=== PATIENT | male | born 1950 | race Caucasian/White ===

== ENCOUNTER 2022-06-13 05:57 | Inpatient (IN) | payer MEDICARE, SELFPAY ==
[2022-06-13] VITALS (27 sets, daily range): BP systolic 119–208; BP diastolic 58–103; PULSE 55–102; RESP 12–26; TEMP 36.1–36.6; O2SAT 98–100; BMI 19.1
--- NOTE | ~2022-06-13 | CT_ITS ---
EXAMINATION: CT abdomen pelvis w con DATE: 06/13/2022 08:32 INDICATION: Left lower quadrant pain. Weight loss. TECHNIQUE: Computed tomography (CT) of the abdomen and pelvis was performed with 100 cc Omnipaque 350 intravenous contrast. The dose-length product was 249.06 mGy-cm. Automated exposure control and iter ative reconstruction technique were employed. COMPARISON: None. FINDINGS: Lung bases are unremarkable. Heart size normal. No significant pleural or pericardial effus ion. There is mild thickening of the gastric wall which may be due to underdistention although gastri tis should be considered in the appropriate clinical setting. There are small nonenlarged lymph nodes along the lesser curvature and paraesophageal locations as well as the portacaval region. Fatty infiltration of the liver. The spleen, pancreas, adrenal glands and kidneys are unremarkable. P ossible gallstones. There is atherosclerosis of the aorta without aneurysm. Moderate retained fecal m aterial in the colon and rectum. Moderate rectal distention. No free air or free fluid. Prostate glan d mildly prominent. No focal abnormality of the bladder wall. Normal appendix which lies just posteri or to the liver margin. Moderate lumbar spondylosis. There is atherosclerosis of the aorta. IMPRESSION: 1. Fecal impaction of the distal colon and rectum. 2: Mild gastric wall thickening which may be due to underdistention or gastritis in the appropriate c linical setting. Reviewed, dictated and finalized at location L. EDITATION SPECIALIST IMPRESSION: 1. Fecal impaction of the distal colon and rectum. 2: Mild gastric wall thickening which may be due to underdistention or gastriti s in the appropriate clinical setting.
--- NOTE | ~2022-06-13 | XR_ITS ---
EXAMINATION: XR chest 2V 06/13/2022 07:59 INDICATION: Weakness. Dyspnea. PROCEDURE: AP and lateral views of the chest COMPARISON: No prior studies for comparison. FINDINGS: The lungs are clear. The cardiomediastinal silhouette is within normal limits. There are no pleural effusions. There is no pneumothorax suspected. Prominent left nipple shadow. The lungs a re hyperinflated which is consistent with, but not diagnostic of chronic obstructive pulmonary diseas e. IMPRESSION: 1: NO ACUTE CARDIOPULMONARY DISEASE. Reviewed, dictated and finalized at location L. POULE EXAMINER
[2022-06-13] MEDS: MORPHINE SULFATE (*CRX) 4 MG/ML INJ IV PUSH (07:33)
[2022-06-13 07:50] LABS: Basophils Percent Auto 0.4 % (0.2-1.2); Eosinophils Percent Auto 0.4 % (0-4.4); Hematocrit 46.9 % (42.0-52.0); Hemoglobin 15.9 g/dL (14.0-18.0); Immature Granulocyte Absolute 0.04 K/mm3 (0.00-0.031); Immature Granulocyte Percent A 0.4 % (0-0.5); Lymphocytes Absolute Auto 2.78 K/mm3 (0.9-3.2); Lymphocytes Percent Auto 26.2 % (18.3-44.2); Mean Corpuscular HGB Conc 33.9 g/dl (32-36); Mean Corpuscular Hemoglobin 31.9 pg (26-34); Mean Platelet Volume 10.8 fl (7.4-10.4); Monocytes Absolute Auto 0.6 K/mm3 (0.1-0.6); Neutrophils Absolute Auto 7.1 K/mm3 (1.3-6.7); Neutrophils Percent Auto 66.6 % (45.5-73.1); Platelet Count Result 231 k/mm3 (150-375); Red Blood Count 4.99 M/mm3 (4.6-6.20); White Blood Count 10.6 K/mm3 (4.5-10.0)
--- NOTE | 2022-06-13 07:58 | ED.ABDPAIN ---
HPI - Abdominal Pain General Chief Complaint: Abdominal Pain Stated Complaint: constipation Time Seen by Provider: 06/13/22 07:00 History of Present Illness HPI narrative: Patient is a 72-year-old male who presents ER with lower abdominal pain. Ongoing over the last month. Left lower quadrant. Associated with constipation and straining go to the bathroom. No abdominal bloating or belching. He reports 70 pound weight loss over the last 4 months that was unintentional. He has not had a colonoscopy before. He is a lifetime smoker. No fevers or chills or sweats. No chest pain or chest pressure. No alleviating factors of his abdominal discomfort. Related Data Home Medications Medication Instructions Recorded Confirmed No Home Medications 06/13/22 06/13/22 Allergies Allergy/AdvReac Type Severity Reaction Status Date / Time No Known Allergies Allergy Verified 06/13/22 12:33 Review of Systems Review of Systems: All systems reviewed & are unremarkable except as noted in HPI and below Constitutional: Constitutional: Denies chills, Denies fatigue and Denies fever(s) ENT: Denies nasal congestion and Denies sore throat Cardiovascular: Cardiovascular: Denies chest pain, Denies rapid heart rate and Denies radiating jaw, neck or arm pain Respiratory: Respiratory: Denies cough and Denies dyspnea Gastrointestinal: Gastrointestinal: Reports abdominal pain, Reports constipation, Denies nausea and Denies vomiting PMF Past Medical History Medical History (Updated 06/13/22 @ 19:02 by Anson Lewis MD) Tobacco dependence Surgical History Surgical History (Updated 06/13/22 @ 18:24 by Shakila Cam PA-C) History of open reduction and internal fixation (ORIF) procedure Repair of compound like fracture. Family History Family History Father Acute myocardial infarction Hypertension Mother Diabetes mellitus Acute myocardial infarction Congestive heart failure Hypertension Daughter Cerebrovascular accident Pseudocholinesterase deficiency Grandparent Diabetes mellitus Congestive heart failure Hypertension Cerebrovascular accident Social History Social History (Updated 06/13/22 @ 13:15 by Shakila Cam PA-C) Social History: Surrogate medical decision maker: Debbie Lund, daughter. Code status: Full code. Smoking packs per day: 1.5 Smoking cigarettes per day: 30.0 Years smoked: 60 Smoking pack-years: 90.00 Smoking status: Current every day smoker Alcohol intake: former Substance use: current Substance use type: marijuana Lack of Transportation: No Lack of Food: Never True Current Housing: I Have Housing Concerned About Future Housing: No Difficulty Paying Gas/Electric Bills: No Difficulty Paying for Meds: No Currently Unemployed: No Education: High School Diploma/GED Difficulty w/ Childcare or Family Care: No Spiritual care concerns: No Exam Narrative: GENERAL: Well-appearing, thin, and in no acute distress. HEAD: Normocephalic, atraumatic. EYES: PERRL and EOMI. ENT: Mucous membranes moist. CHEST: Clear to auscultation. No respiratory distress. HEART: Regular rate and rhythm. Normal peripheral pulses. ABDOMEN: Soft, tender to palpation left lower quadrant with mild guarding, no palpable mass, nondistended. EXTREMITIES: Normal range of motion. No edema. SKIN: Warm, dry, no rash. NEURO: Alert and oriented x3. PSYCH: Normal mood and affect. Course Course Emergency Course: Patient will receive a enema for fecal impaction. He has declined manual extraction. I have also discussed the case with GI patient will be admitted so he can have an endoscopy and colonoscopy. Patient will receive a bowel prep and be put on clear liquids. Excepted by hospitalist service. Vital Signs Vital signs: Vital Signs Pulse Rate 95 06/13/22 06:02 Respiratory Rate 19 06/13/22 06:02
[2022-06-13 08:02] LABS: Alanine Aminotransferase 17 U/L (6-50); Albumin Level 4.1 g/dL (3.5-5.1); Alkaline Phosphatase 55 U/L (38-126); Anion Gap 7 mmol/L (8-16); Aspartate Amino Transferase 20 U/L (17-59); Bilirubin,Total 0.5 mg/dL (0.2-1.3); Blood Urea Nitrogen 12 mg/dL (9-20); Calcium 8.9 mg/dL (8.4-10.2); Carbon Dioxide 23 mmol/L (22-30); Chloride 108 mmol/L (98-107); Estimated CRCL calculation 89 ml/min; Estimated Glomerular Filt Rate > 60; Glucose 96 mg/dL (65-110); Lipase 148 U/L (23-300); Potassium 3.7 mmol/L (3.4-5.0); Sodium 138 mmol/L (137-145)
[2022-06-13 08:23] LABS: Appearance Urine Clear (Clear); Bilirubin Urine 1+ (Negative); Blood Urine Negative (Negative); Color Urine Yellow (Yellow); Glucose Urine UA Negative (Negative); Ketones Urine Trace mg/dL (Negative); Leukocyte Esterase Ur Negative LEU/UL (Negative); Nitrate Urine Negative (Negative); Protein Urine Negative (Negative); Urobilinogen Urine 0.2 mg/dL (<2.0)
[2022-06-13 08:25] LABS: Mucus Urine Rare /lpf; RBC Urine 0-2 /hpf (0-2); Squamous Epithelial Cell Urine Rare /hpf (Few); WBC Urine 0-3 /hpf
[2022-06-13 08:26] LABS: Add Urine Microscopic? YES
[2022-06-13] MEDS: BISACODYL 5 MG TABLET EC 20 MG PO (10:02)
[2022-06-13] MEDS: PANTOPRAZOLE SODIUM IV 40 MG VIAL IV PUSH (10:39)
--- NOTE | 2022-06-13 10:46 | PC.NURSE ---
Up to commode. Passing liquid but states he feels like stool is stuck and not coming out. Pt refuses digital disimpaction by the erp.
[2022-06-13 10:59] LABS: Influenza A QL RT-PCR Negative (Negative); Influenza B QL RT-PCR Negative (Negative); SARS-CoV-2 RNA PCR Negative
[2022-06-13] MEDS: SODIUM CHLORIDE 0.9% IV 1,000 ML 125 ML IV CONT ×2 (12:11→19:53)
--- NOTE | 2022-06-13 12:32 | ADMGEN ---
This patient, Johnny Lund, was admitted to [facility] Surg Room 330-02. Report received from JENNIFER Molina. Patient/family oriented to hospital policies and general routines including ID bracelet, bed and alarms, visiting hours, pain management, procedures, bathroom and other care routines, personal items, smoking policy, room service/diet, and visiting hours. Information on how to activate the Rapid Response Team has been discussed. Patient/Family are encouraged to report perceived risks to care and to ask questions if they do not understand what they are told or what they should do.
[2022-06-13] MEDS: polyethylene glycoL 3350 238 GM BOTTLE PO (13:06)
--- NOTE | 2022-06-13 13:44 | WPDGICN ---
Assessment and Plan Assessment and plan (1) Unintentional weight loss: Code(s): R63.4 - Abnormal weight loss Status: Acute Assessment and Plan: will assess with egd and colonoscopy (had abnormal gastric thickening by CT scan), need to assess for malignancy (2) Fecal impaction: Code(s): K56.41 - Fecal impaction Status: Acute Assessment and Plan: s/p enema colonoscopy tomorrow (3) Abnormal CT of the abdomen: Code(s): R93.5 - Abnormal findings on diagnostic imaging of other abdominal regions, including retroperitoneum Status: Acute Assessment and Plan: reviewed, will proceed with scopes (4) Bowel habit changes: Code(s): R19.4 - Change in bowel habit Status: Acute Assessment and Plan: needs to get colonoscopy, he is agreeable (5) Tobacco dependence: Code(s): F17.200 - Nicotine dependence, unspecified, uncomplicated Status: Acute GI Consult Note Consult date/time: 06/13/22 13:44 Reason for consult: weight loss, fecal impaction, abnormal CT scan GI tract HPI: Johnny Lund is a 72 year old male here with progressive weight loss ~ 70 lb last few months, also rectal discomfort with change in bowel habits, he has not had a good BM for several days now. He has not seen a doctor most of his adult life and he is not taking any medication or ever had scopes I am healthy . CT scan reviewed, showed fecal impaction of the distal colon and rectum, Mild gastric wall thickening which may be due to underdistention or gastritis in the appropriate clinical setting. h/h and liver enzymes normal Review of Systems Constitutional: Constitutional: Denies headache(s) and Reports weight loss Eyes: Eyes: Denies blurry vision ENT: Reports Normal hearing present, Denies headache(s) and Denies neck pain Cardiovascular: Cardiovascular: Denies chest pain and Denies dyspnea Respiratory: Respiratory: Denies dyspnea Gastrointestinal: Gastrointestinal: Reports no additional gastrointestinal complaints Genitourinary: Genitourinary: Denies dysuria Musculoskeletal: Musculoskeletal: Denies neck pain Integumentary/Breasts: Skin/Breast: Denies dry skin Neurologic: Reports Normal hearing present, Denies headache(s) and Denies weakness Psychiatric: Psychiatric: Denies anxiety Endocrine: Endocrine: Denies change in body appearance Hematologic/Lymphatic: Hematologic/Lymphatic: Denies easy bleeding Allergic/Immunologic: Allergic/Immunologic: Denies urticaria PMFSH Past Medical History Medical History (Updated 06/13/22 @ 13:47 by Ananth Nguyen MD) Abnormal CT of the abdomen Bowel habit changes Tobacco dependence Surgical History Surgical History No history of previous surgery Family History Family History Father Acute myocardial infarction Hypertension Mother Acute myocardial infarction Congestive heart failure Diabetes mellitus Hypertension Daughter Cerebrovascular accident Grandparent Cerebrovascular accident Congestive heart failure Diabetes mellitus Hypertension Social History Social History (Updated 06/13/22 @ 13:15 by Shakila Cam PA-C) Social History: Surrogate medical decision maker: Debbie Lund, daughter. Code status: Full code. Smoking packs per day: 1.5 Smoking cigarettes per day: 30.0 Years smoked: 60 Smoking pack-years: 90.00 Smoking status: Current every day smoker Alcohol intake: former Substance use: current Substance use type: marijuana Lack of Transportation: No Lack of Food: Never True Current Housing: I Have Housing Concerned About Future Housing: No Difficulty Paying Gas/Electric Bills: No Difficulty Paying for Meds: No Currently Unemployed: No Education: High School Diploma/GED Difficulty w/ Childcare or Family Care: No
--- NOTE | 2022-06-13 14:00 | PM.IMHP ---
H&P: HPI History of Present Illness Date/Time: 06/13/22 14:00 Chief Complaint: Constipation and abdominal discomfort. Narrative: This is a very pleasant 72-year-old male smoker without significant medical history (he does not think he has seen a doctor since the age of 19) who presented to the emergency department via EMS from home for evaluation of constipation and abdominal discomfort. Patient provides the following history. Up until 4 months ago he had good bowel movements 2 times a day. He is now having issues going to the bathroom and he strains to have bowel movements. Occasionally he has to disimpact himself. When he does have a bowel movement the stools are small and hard. He has been taking will softeners, mineral oil, and MiraLax but they have not really helped. Additionally he has had generalized abdominal discomfort in the lower abdomen, a bit more so on the right side. Today he just could not take it anymore and decided to come in for evaluation. He has not noticed any blood in the stool but he thinks he may have hemorrhoids. He has lost 70 lb unintentionally in the last several months. He has gotten a bit weak in the same time frame and has been ambulating with a cane. He has never had a colonoscopy. No significant abdominal bloating or belching. He has not noticed any palpable masses. No personal or family history of colon cancer. CT of the abdomen and pelvis shows fecal impaction of the distal colon and rectum and mild gastric wall thickening. He is being admitted in this setting for further treatment, evaluation, and GI consultation. Review of Systems Review of Systems: Twelve systems were reviewed. Denies dysphagia. no fever, chills, or sweats. No recent cold or flu symptoms. No chest pain or shortness of breath. No lower extremity edema. No calf pain. He is not on opioid therapy. No history of thyroid disease. Except as documented, all other systems were reviewed and are negative. [facility] Past Medical History Medical History Tobacco dependence Surgical History Surgical History History of open reduction and internal fixation (ORIF) procedure Repair of compound like fracture. Family History Family History Father Acute myocardial infarction Hypertension Mother Diabetes mellitus Acute myocardial infarction Congestive heart failure Hypertension Daughter Cerebrovascular accident Pseudocholinesterase deficiency Grandparent Diabetes mellitus Congestive heart failure Hypertension Cerebrovascular accident Social History Social History Social History: Surrogate medical decision maker: Debbie Lund, daughter. Code status: Full code. Smoking packs per day: 1.5 Smoking cigarettes per day: 30.0 Years smoked: 60 Smoking pack-years: 90.00 Smoking status: Current every day smoker Alcohol intake: former Substance use: current Substance use type: marijuana Lack of Transportation: No Lack of Food: Never True Current Housing: I Have Housing Concerned About Future Housing: No Difficulty Paying Gas/Electric Bills: No Difficulty Paying for Meds: No Currently Unemployed: No Education: High School Diploma/GED Difficulty w/ Childcare or Family Care: No Spiritual care concerns: No Meds Home Medications and Allergies Home Medications Medication Instructions Recorded Confirmed Type No Home Medications 06/13/22 06/13/22 History Allergies Allergy/AdvReac Type Severity Reaction Status Date / Time No Known Allergies Allergy Verified 06/13/22 12:33 Vital Signs Vital Signs - 24 hr 06/13/22 06:02 06/13/22 06:03 06/13/22 06:05 Temperature Pulse Rate 95 94 96 Respiratory Rate 19 24 H 22 H Blood Pressure 126/103 H 126/103
[2022-06-13] MEDS: NICOTINE (*PBKC) 21 MG PATCH 1 PATCH TRANSDERM (19:46)
[2022-06-13] MEDS: ACETAMINOPHEN 325 MG TABLET 650 MG PO (19:54)
[2022-06-14] VITALS (9 sets, daily range): BP systolic 96–175; BP diastolic 41–83; PULSE 50–61; RESP 16–18; TEMP 35.9–36.4; O2SAT 98–100
[2022-06-14] MEDS: ACETAMINOPHEN 325 MG TABLET 650 MG PO ×2 (06:28→18:28)
[2022-06-14] MEDS: SODIUM CHLORIDE 0.9% IV 1,000 ML 125 ML IV CONT (06:28)
[2022-06-14 07:01] LABS: Hematocrit 41.9 % (42.0-52.0); Hemoglobin 13.9 g/dL (14.0-18.0); Mean Corpuscular HGB Conc 33.2 g/dl (32-36); Mean Corpuscular Hemoglobin 31.7 pg (26-34); Mean Corpuscular Volume 95.4 fl (80-100); Mean Platelet Volume 11.5 fl (7.4-10.4); Platelet Count Result 202 k/mm3 (150-375); Red Blood Count 4.39 M/mm3 (4.6-6.20); White Blood Count 8.8 K/mm3 (4.5-10.0)
[2022-06-14 07:15] LABS: Anion Gap 4 mmol/L (8-16); Blood Urea Nitrogen 7 mg/dL (9-20); Calcium 8.2 mg/dL (8.4-10.2); Carbon Dioxide 23 mmol/L (22-30); Chloride 112 mmol/L (98-107); Estimated CRCL calculation 89 ml/min; Estimated Glomerular Filt Rate > 60; Glucose 86 mg/dL (65-110); Magnesium 2.1 mg/dL (1.6-2.3); Potassium 3.7 mmol/L (3.4-5.0); Sodium 139 mmol/L (137-145)
[2022-06-14] MEDS: NICOTINE (*PBKC) 21 MG PATCH 1 PATCH TRANSDERM (08:21)
[2022-06-14] MEDS: PANTOPRAZOLE SODIUM IV 40 MG VIAL IV PUSH ×2 (08:21→20:47)
[2022-06-14] MEDS: LACTATED RINGERS 1,000 ML 150 ML IV CONT ×2 (13:37→15:30)
--- NOTE | 2022-06-14 13:58 | WPDANESEPPF ---
Anes - Initial Pre Proc Eval Procedure: Operation Date: 06/14/22 16:45 Proposed Procedures p Esophagogastroduodenoscopy & Colonoscopy - Ananth Nguyen MD Date/Time: 06/14/22 13:58 Surgeon: Iani Nelson MD Pre Op Diagnosis: Fecal Impaction/Unexplained Weight Loss/Gastric Wa Patient Data Age: 72 Gender: M Height: 1.87 m Weight: 66.6 kg Last Vital Signs Temp 96.9 F L 06/14/22 13:20 Pulse 56 L 06/14/22 13:20 Resp 16 06/14/22 13:20 BP 175/69 H 06/14/22 13:20 Pulse Ox 99 06/14/22 13:20 O2 Del Method Room Air 06/14/22 13:20 Allergies Allergy/AdvReac Type Severity Reaction Status Date / Time No Known Allergies Allergy Verified 06/14/22 13:31 Home Medications Medication Instructions Recorded Confirmed Type No Home Medications 06/13/22 06/13/22 History Laboratory Tests 06/14/22 06/14/22 06/14/22 06:11 06:11 06:11 WBC 8.8 K/mm3 K/mm3 (4.5-10.0) RBC 4.39 M/mm3 L M/mm3 (4.6-6.20) Hgb 13.9 g/dL L g/dL (14.0-18.0) Hct 41.9 % L % (42.0-52.0) MCV 95.4 fl fl (80-100) MCH 31.7 pg pg (26-34) MCHC 33.2 g/dl g/dl (32-36) RDW 14.0 % % (11.5-14.5) Plt Count 202 k/mm3 k/mm3 (150-375) MPV 11.5 fl H fl (7.4-10.4) Sodium 139 mmol/L mmol/L (137-145) Potassium 3.7 mmol/L mmol/L (3.4-5.0) Chloride 112 mmol/L H mmol/L (98-107) Carbon Dioxide 23 mmol/L mmol/L (22-30) Anion Gap 4 mmol/L L mmol/L (8-16) BUN 7 mg/dL L D mg/dL (9-20) Creatinine 0.60 mg/dL L mg/dL (0.7-1.3) Estim Creat Clear Calc 89 ml/min ml/min Estimated GFR > 60 (59 - ) Glucose 86 mg/dL mg/dL (65-110) Calcium 8.2 mg/dL L mg/dL (8.4-10.2) Magnesium 2.1 mg/dL mg/dL (1.6-2.3) TSH (Reflex) 1.010 uIU/mL uIU/mL (0.465-4.68) Patient hx anesthesia problems: none Family hx anesthesia problems: none Results Review: All pre-operative results and documents have been reviewed as part of the pre-operative evaluation. [facility] Past Medical History Medical History Tobacco dependence Surgical History Surgical History History of open reduction and internal fixation (ORIF) procedure Repair of compound like fracture. Family History Family History Father Acute myocardial infarction Hypertension Mother Diabetes mellitus Acute myocardial infarction Congestive heart failure Hypertension Daughter Cerebrovascular accident Pseudocholinesterase deficiency Grandparent Diabetes mellitus Congestive heart failure Hypertension Cerebrovascular accident Social History Social History Social History: Surrogate medical decision maker: Debbie Lund, daughter. Code status: Full code. Smoking packs per day: 1.5 Smoking cigarettes per day: 30.0 Years smoked: 60 Smoking pack-years: 90.00 Smoking status: Current every day smoker Alcohol intake: former Substance use: current Substance use type: marijuana Lack of Transportation: No Lack of Food: Never True Current Housing: I Have Housing Concerned About Future Housing: No Difficulty Paying Gas/Electric Bills: No Difficulty Paying for Meds: No Currently Unemployed: No Education: High School Diploma/GED Difficulty w/ Childcare or Family Care: No Spiritual care concerns: No Anes - Eval Final PreProcedure Day of Procedure 06/14/22 13:58 Patient weight: normal Heart: regular rate and rhythm Lungs: clear to auscultation Airway: Mallampati scale class II Neurological: alert and oriented Last oral intake: >/= 8 hours ASA classi
--- NOTE | 2022-06-14 14:52 | SUR.OPER ---
EGD: [id number] Colonoscopy began at 1450
--- NOTE | 2022-06-14 16:08 | PM.IMPN ---
Progress Note: A&P Assessment and Plan (1) Fecal impaction: Code(s): K56.41 - Fecal impaction Status: Acute Assessment and Plan: Patient reports ongoing issues with constipation x4 months. MiraLax, mineral oil, stool softeners have not helped. CT of the abdomen pelvis shows evidence of fecal impaction await colonscopy report (2) Unintentional weight loss: Code(s): R63.4 - Abnormal weight loss Status: Acute Assessment and Plan: Concerning given the above GI symptoms. CT of the abdomen and pelvis also showed abnormal gastric thickening. Pt scheduled for upper and lower endoscopy (3) Elevated blood pressure reading: Code(s): R03.0 - Elevated blood-pressure reading, without diagnosis of hypertension Status: Acute Assessment and Plan: Continue antihypertensives if indicated. (4) Tobacco dependence: Code(s): F17.200 - Nicotine dependence, unspecified, uncomplicated Status: Acute Assessment and Plan: Smoking cessation is encouraged. Nicotine patch ordered per patient request. Subjective Date/time seen: 06/14/22 16:08 72-year-old male smoker without significant medical history (he does not think he has seen a doctor since the age of 19) who presented to the emergency department via EMS from home for evaluation of constipation and abdominal discomfort. Patient provides the following history. Pt receiving bowel prep, for colonoscopy today. pt has complains of RLS CT showed - showed?fecal impaction of the distal colon and rectum,? Mild gastric wall thickening Await colonscopy report Review of Systems Review of Systems: Restless leg syndrome weight loss Exam Narrative: General: Thin appearing chronically ill appearing Respiratory: Respirations are nonlabored and he is speaking in full sentences. Lung sounds diminished throughout with faint expiratory wheezing. Otherwise lungs are clear to auscultation bilaterally. Cardiovascular: Regular rate and rhythm with S1-S2. Gastrointestinal: Abdomen is soft, scaphoid, nontender, and nondistended with positive bowel sounds. Skin: Warm and dry. No rash or lesions on limited exam. Extremities: No cyanosis, clubbing, or edema. Radial and pedal pulses intact. Neurological: Alert. Cranial nerves 2-12 are grossly intact. Speech is clear. No facial asymmetry. No gross focal deficits to casual conversation. Psychiatric: Pleasant and cooperative with normal mood and affect. Judgment and insight intact. Objective Data Vital Signs Vital Signs: Vital Signs - 24 hr 06/13/22 20:00 06/14/22 00:00 06/14/22 04:00 Temperature 36.2 C L 36.3 C L 36.3 C L Pulse Rate 55 L 51 L 56 L Respiratory Rate 16 18 18 Blood Pressure 119/58 L 96/41 L 130/83 Pulse Oximetry 98 98 99 Oxygen Delivery 06/14/22 09:00 06/14/22 13:20 06/14/22 15:35 Temperature 36.4 C L 36.1 C L Pulse Rate 52 L 56 L 53 L Respiratory Rate 18 16 17 Blood Pressure 129/81 175/69 H 139/59 L Pulse Oximetry 98 99 99 Oxygen Delivery Room Air Room Air 06/14/22 15:45 Temperature Pulse Rate 54 L Respiratory Rate 17 Blood Pressure 146/71 H Pulse Oximetry 100 Oxygen Delivery Room Air Intake/Output Intake/Output: Intake & Output 06/11/22 06/12/22 06/13/22 06/14/22 23:59 23:59 23:59 23:59 Intake Total 2680 2125 Output Total 600 1100 Balance 2080 1025 Meds/Results Medications: Active Medications Generic Name Dose Route Start Last Admin Trade Name Freq PRN Reason Stop Dose Admin Acetaminophen 650 mg 06/13/22 13:19 06/14/22 06:28 Acetaminophen 325 Mg Tablet PO 650 mg Q6H PRN Administration Mild Pain (1-3) or Fever Sodium Chloride 1,000 mls @ 125 mls/hr 06/13/22 10:20 06/14/22 06:28 Normal Saline Iv IV CONT 125 mls/hr .Q8H ADITI Administration Nicotine 1 patch 06/13/22 18:25 06/14/22 08:21 Nicotine (*Pbkc) 21 Mg Patch TRANSDERM 1 patch QAM ADITI Administration
[2022-06-15] VITALS: BP 135/81; PULSE 57; RESP 14; TEMP 36.2; O2SAT 97
[2022-06-15] MEDS: ACETAMINOPHEN 325 MG TABLET 650 MG PO (01:16)
[2022-06-15 04:00] VITALS: BP 138/74; PULSE 53; RESP 18; TEMP 36.3; O2SAT 100
[2022-06-15] MEDS: NICOTINE (*PBKC) 21 MG PATCH 1 PATCH TRANSDERM (09:16)
[2022-06-15 10:00] VITALS: BP 132/79; PULSE 62; RESP 18; TEMP 36.4; O2SAT 97
--- NOTE | 2022-06-15 10:18 | WPDANESPN ---
Anes - Prog Note Post-Op Date/Time: 06/15/22 10:18 Cardiovascular status: normal Respiratory status: normal Airway patency: baseline Mental status: baseline Post-Op hydration status: normal Vital Signs: Last Vital Signs Temp 36.4 C L 06/15/22 10:00 Pulse 62 06/15/22 10:00 Resp 18 06/15/22 10:00 BP 132/79 06/15/22 10:00 Pulse Ox 97 06/15/22 10:00 O2 Del Method Room Air 06/14/22 15:45 Pain Score (VAS): 0 I/O: Intake & Output 06/14/22 06/15/22 06/15/22 23:59 07:59 15:59 Intake Total 120 250 240 Output Total 900 125 Balance -780 125 240 Laboratory Tests 06/14/22 06:11 06/14/22 06:11 Post-procedural complaints: none Patient Feedback: Patient satisfied with anesthetic care.
--- NOTE | 2022-06-15 12:32 | PM.IMPN ---
Progress Note: A&P Assessment and Plan (1) Fecal impaction: Code(s): K56.41 - Fecal impaction Status: Acute Assessment and Plan: Patient reports ongoing issues with constipation x4 months. MiraLax, mineral oil, stool softeners have not helped. CT of the abdomen pelvis shows evidence of fecal impaction. Sp bowel prep and colonoscopy Colonoscopy report shows - colonic polyp and diverticulosis Advance diet dc tomorrow (2) Unintentional weight loss: Code(s): R63.4 - Abnormal weight loss Status: Acute Assessment and Plan: Concerning given the above GI symptoms. CT of the abdomen and pelvis also showed abnormal gastric thickening. Sp colonoscopy (3) Elevated blood pressure reading: Code(s): R03.0 - Elevated blood-pressure reading, without diagnosis of hypertension Status: Acute Assessment and Plan: Continue antihypertensives if indicated. (4) Tobacco dependence: Code(s): F17.200 - Nicotine dependence, unspecified, uncomplicated Status: Acute Assessment and Plan: Smoking cessation is encouraged. Nicotine patch ordered per patient request. Plan RLS Start gabapentin for leg cramps Subjective Date/time seen: 06/15/22 12:32 72-year-old male smoker without significant medical history (he does not think he has seen a doctor since the age of 19) who presented to the emergency department via EMS from home for evaluation of constipation and abdominal discomfort. Patient provides the following history. Up until 4 months ago he had good bowel movements 2 times a day. He is now having issues going to the bathroom and he strains to have bowel movements.? Occasionally he has to disimpact himself. When he does have a bowel movement the stools are small and hard. He has been taking will softeners, mineral oil, and MiraLax but they have not really helped. Additionally he has had generalized abdominal discomfort in the lower abdomen, a bit more so on the right side. Pt had ?colonoscopy yesterday. pt has complains of RLS. pt still having some loose stool. CT showed - showed?fecal impaction of the distal colon and rectum,? Mild gastric wall thickening Colonoscopy report shows colonic polyp and diverticulosis Pt to advance diet and DC tomorrow with GI follow up Review of Systems Review of Systems: loose stools +painful legs Exam Narrative: General: Thin appearing chronically ill appearing Respiratory: Respirations are nonlabored and he is speaking in full sentences. Lung sounds diminished throughout with faint expiratory wheezing. Otherwise lungs are clear to auscultation bilaterally. Cardiovascular: Regular rate and rhythm with S1-S2. Gastrointestinal: Abdomen is soft, scaphoid, nontender, and nondistended with positive bowel sounds. Skin: Warm and dry. No rash or lesions on limited exam. Extremities: No cyanosis, clubbing, or edema. Radial and pedal pulses intact. Neurological: Alert. Cranial nerves 2-12 are grossly intact. Speech is clear. No facial asymmetry. No gross focal deficits to casual conversation. Psychiatric: Pleasant and cooperative with normal mood and affect. Judgment and insight intact. Objective Data Vital Signs Vital Signs: Vital Signs - 24 hr 06/14/22 13:20 06/14/22 15:35 06/14/22 15:45 Temperature 36.1 C L Pulse Rate 56 L 53 L 54 L Respiratory Rate 16 17 17 Blood Pressure 175/69 H 139/59 L 146/71 H Pulse Oximetry 99 99 100 Oxygen Delivery Room Air Room Air Room Air 06/14/22 16:00 06/14/22 18:00 06/14/22 20:00 Temperature 35.9 C L 36.2 C L 36.1 C L Pulse Rate 50 L 61 52 L Respiratory Rate 16 18 18 Blood Pressure 149/70 H 134/63 137/64 Pulse Oximetry 100 100 98 Oxygen Delivery 06/15/22 00:00 06/15/22 04:00 06/15/22 10:00 Temperature 36.2 C L 36.3 C L 36.4 C L Pulse Rate 57 L 53 L 62 Respiratory Rate 14 18 18 Blood Pressure 135/81 138/74 132/79 Pulse Oximetry 97 100 97 Oxygen Delivery
[2022-06-15 14:00] VITALS: BP 151/69; PULSE 68; RESP 18; TEMP 36.4; O2SAT 97
[2022-06-15] MEDS: PANTOPRAZOLE 40 MG TABLET PO ×2 (14:04→20:08)
[2022-06-15] MEDS: GABAPENTIN 100 MG CAPSULE PO ×2 (14:04→17:21)
--- NOTE | 2022-06-15 15:26 | WPDGIPROGNO ---
Progress Note: A&P Assessment and Plan (1) Gastric ulcer: Code(s): K25.9 - Gastric ulcer, unspecified as acute or chronic, without hemorrhage or perforation Status: Acute Assessment and Plan: I am concerned that he could have gastric malignancy (awaiting on bx)- if positive then will need to see oncology and surgery evaluation continue with protonix twice daily (2) Unintentional weight loss: Code(s): R63.4 - Abnormal weight loss Status: Acute Assessment and Plan: probably from egd finding (3) Bowel habit changes: Code(s): R19.4 - Change in bowel habit Status: Acute (4) Fecal impaction: Code(s): K56.41 - Fecal impaction Status: Acute Assessment and Plan: resolved (5) Abnormal CT of the abdomen: Code(s): R93.5 - Abnormal findings on diagnostic imaging of other abdominal regions, including retroperitoneum Status: Acute (6) Adenomatous colon polyp: Code(s): D12.6 - Benign neoplasm of colon, unspecified Status: Acute Assessment and Plan: several colon polyps removed yesterday, pending bx Subjective Date/time seen: 06/15/22 15:26 Interval history: egd yesterday with large gastric ulcer concerning for malignancy, had several colon polyps that I removed no signs of bleeding Review of Systems Review of Systems: All systems reviewed & are unremarkable except as noted in HPI and below Exam Const: General: comfortable and no acute distress HENMT: Face/Nose/Sinus: Normal nares present Eyes: General: appearance normal, both eyes and all related structures Neck: Neck: no JVD Resp: Auscultation: clear to auscultation bilaterally Cardio: Rate: regular rate Rhythm: regular rhythm GI: Inspection: non-distended GI Palp: Yes Soft to palpation, No Tenderness to palpation present (GI) and No Guarding due to palpation present (GI) Skin: General skin exam: normal color Neuro: General: gait normal Speech: normal speech Extrem: General: normal to inspection Psych: Mental Status: mental status grossly normal Objective Data Vital Signs Vital Signs: Vital Signs - 24 hr 06/14/22 15:35 06/14/22 15:45 06/14/22 16:00 Temperature 96.7 F L Pulse Rate 53 L 54 L 50 L Respiratory Rate 17 17 16 Blood Pressure 139/59 L 146/71 H 149/70 H Pulse Oximetry 99 100 100 Oxygen Delivery Room Air Room Air 06/14/22 18:00 06/14/22 20:00 06/15/22 00:00 Temperature 97.2 F L 97 F L 97.2 F L Pulse Rate 61 52 L 57 L Respiratory Rate 18 18 14 Blood Pressure 134/63 137/64 135/81 Pulse Oximetry 100 98 97 Oxygen Delivery 06/15/22 04:00 06/15/22 10:00 06/15/22 14:00 Temperature 97.3 F L 97.5 F L 97.5 F L Pulse Rate 53 L 62 68 Respiratory Rate 18 18 18 Blood Pressure 138/74 132/79 151/69 H Pulse Oximetry 100 97 97 Oxygen Delivery Intake/Output Intake/Output: Intake & Output 06/12/22 06/13/22 06/14/22 06/15/22 23:59 23:59 23:59 23:59 Intake Total 2680 2245 490 Output Total 600 2000 125 Balance 2080 245 365 Meds/Results Medications: Active Medications Generic Name Dose Route Start Last Admin Trade Name Freq PRN Reason Stop Dose Admin Acetaminophen 650 mg 06/13/22 13:19 06/15/22 01:16 Acetaminophen 325 Mg Tablet PO 650 mg Q6H PRN Administration Mild Pain (1-3) or Fever Gabapentin 100 mg 06/15/22 13:00 06/15/22 14:04 Gabapentin 100 Mg Capsule PO 100 mg TID ADITI Administration Nicotine 1 patch 06/13/22 18:25 06/15/22 09:16 Nicotine (*Pbkc) 21 Mg Patch TRANSDERM 1 patch QAM ADITI Administration Ondansetron HCl 4 mg 06/13/22 10:19 Ondansetron Inj 4 Mg/2 Ml Vial IV PUSH Q4H PRN Nausea Pantoprazole Sodium 40 mg 06/15/22 10:50 06/15/22 14:04 Pantoprazole 40 Mg Tablet PO 40 mg Q12HR ADITI Administration Radiology Results: ITS Impressions Chest X-Ray 06/13/22 08:08 IMPRESSION: 1: NO ACUTE CARDIOPULMONARY DISEASE.
[2022-06-15 17:00] VITALS: BP 154/78; PULSE 66; RESP 16; TEMP 36.4; O2SAT 98
[2022-06-15 20:00] VITALS: BP 148/71; PULSE 61; RESP 16; TEMP 36; O2SAT 99
[2022-06-16] VITALS: BP 141/61; PULSE 52; RESP 18; TEMP 35.8; O2SAT 100
[2022-06-16 04:00] VITALS: BP 144/68; PULSE 54; RESP 20; TEMP 36; O2SAT 99
[2022-06-16 06:28] LABS: Anion Gap 5 mmol/L (8-16); Blood Urea Nitrogen 8 mg/dL (9-20); Calcium 8.5 mg/dL (8.4-10.2); Carbon Dioxide 23 mmol/L (22-30); Chloride 107 mmol/L (98-107); Estimated CRCL calculation 86 ml/min; Estimated Glomerular Filt Rate > 60; Glucose 85 mg/dL (65-110); Potassium 3.6 mmol/L (3.4-5.0); Sodium 135 mmol/L (137-145)
[2022-06-16] MEDS: ACETAMINOPHEN 325 MG TABLET 650 MG PO ×2 (09:45→20:58)
[2022-06-16] MEDS: PANTOPRAZOLE 40 MG TABLET PO ×2 (09:45→20:57)
[2022-06-16] MEDS: NICOTINE (*PBKC) 21 MG PATCH 1 PATCH TRANSDERM (09:48)
[2022-06-16] MEDS: GABAPENTIN 100 MG CAPSULE PO ×2 (10:01→16:39)
--- NOTE | 2022-06-16 10:30 | PM.IMPN ---
Progress Note: A&P Assessment and Plan (1) Fecal impaction: Code(s): K56.41 - Fecal impaction Status: Acute Assessment and Plan: Patient reports ongoing issues with constipation x4 months. MiraLax, mineral oil, stool softeners have not helped. CT of the abdomen pelvis shows evidence of fecal impaction. Sp bowel prep and colonoscopy Colonoscopy report shows - colonic polyp and diverticulosis Advance diet to low fiber diet Added suppository to the regimen (2) Unintentional weight loss: Code(s): R63.4 - Abnormal weight loss Status: Acute Assessment and Plan: Concerning given the above GI symptoms. CT of the abdomen and pelvis also showed abnormal gastric thickening. Sp colonoscopy (3) Elevated blood pressure reading: Code(s): R03.0 - Elevated blood-pressure reading, without diagnosis of hypertension Status: Acute Assessment and Plan: Continue antihypertensives if indicated. BP stable (4) Tobacco dependence: Code(s): F17.200 - Nicotine dependence, unspecified, uncomplicated Status: Acute Assessment and Plan: Smoking cessation is encouraged. Nicotine patch ordered per patient request. (5) Gastric ulcer: Code(s): K25.9 - Gastric ulcer, unspecified as acute or chronic, without hemorrhage or perforation Status: Acute Assessment and Plan: Noted on the EGD Could be malignant will need to follow up with GI in the office for further information Plan RLS Start gabapentin for leg cramps Time Spent With Patient Time: 52 minutes Time with patient: Greater than 35 minutes Subjective Date/time seen: 06/16/22 1030 Interval history: 06/16/22 1030 Patient is lying in bed. Patient states he feels okay however he is having a little bit of lower abdominal pain. He still has not had a BM and is worried about that. Sunday he had a colonoscopy which he was told he had a tumor free explained to him that this was from the ulcer. Appetite is better. He currently denies any chest pain, shortness a breath, nausea, vomiting, weakness or fatigue. Spoke to his daughter who stated that the patient is worried about having a BM as he is very anxious about it. Explained the findings on the colonoscopy and egd. Explained what the next steps were. He should able to DC soon. 06/15/22? 12:32 72-year-old male smoker without significant medical history (he does not think he has seen a doctor since the age of 19) who presented to the emergency department via EMS from home for evaluation of constipation and abdominal discomfort. Patient provides the following history. Up until 4 months ago he had good bowel movements 2 times a day. He is now having issues going to the bathroom and he strains to have bowel movements.? Occasionally he has to disimpact himself. When he does have a bowel movement the stools are small and hard. He has been taking will softeners, mineral oil, and MiraLax but they have not really helped. Additionally he has had generalized abdominal discomfort in the lower abdomen, a bit more so on the right side. Review of Systems Review of Systems: All systems reviewed & are unremarkable except as noted in HPI and below Exam Narrative: General: well-nourished, well-appearing 72-year-old female, sitting up in bed, comfortable, NARD Neuro: awake, alert and oriented x4, speech clear, no focal neuro deficits noted HEENMT: normocephalic, atraumatic, EOMI, sclerae anicteric, moist oral mucosa Respiratory: Clear to auscultation bilaterally without crackles, rhonchi or wheezes, nonlabored breathing Cardio: regular rate, regular rhythm with S1-S2 Abdomen: nondistended, normoactive bowel sounds, soft, nontender to palpation Extremities: no edema, erythema, or tenderness to palpation, DP pulses 2+ bilaterally Skin: no rashes or lesions, warm and dry Psych: appropriate mood and affect, judgment and in
--- NOTE | 2022-06-16 11:49 | PCNFU ---
Nutrition Follow-Up Complete: Severe malnutrition related to inadequate protein energy intake as evidenced by a -31% wt loss x 3 months, less than 50% intake of estimated needs for greater than a month, noted subcutaneous fat loss and muscle wasting. Goal: Meet estimated needs - Progressing toward goal Pt current nutrition is Low fiber diet, Ensure Compact BID. Intakes 50-90% since diet was advanced yesterday after EGD. Nutrition recommendation: Continue with same orders, advance diet per MD. Agree with current orders. Last recorded weight is 64.6 kg. Bowel Motility: +1 06/14/22 Labs Reviewed: Hg b 13.9, Hct 41.9, Na 135, BUN 8, Cre 0.6 Meds Noted: Protonix, Zofran Skin: WNL Additional Notes: EGD and colonoscopy, findings of gastric ulcer; polyps. Awaiting results of biopsy. Diet is progressed. Continue with same orders and monitoring. Monitor diet orders, intake, wt, labs. Follow up in 3 days.
[2022-06-16] MEDS: DOCUSATE SODIUM 100 MG CAPSULE PO ×2 (13:08→20:58)
[2022-06-16] MEDS: BISACODYL 10 MG SUPPOSITORY RECTAL (13:08)
[2022-06-16] MEDS: polyethylene glycoL 3350 17 GM POWD.PACK PO (13:09)
[2022-06-16 14:00] VITALS: BP 156/68; PULSE 71; RESP 16; TEMP 36.9; O2SAT 99
--- NOTE | 2022-06-16 14:46 | WPDGIPROGNO ---
Progress Note: A&P Assessment and Plan (1) Gastric ulcer: Code(s): K25.9 - Gastric ulcer, unspecified as acute or chronic, without hemorrhage or perforation Status: Acute Assessment and Plan: still awaiting biopsies possible gastric malignancy, he can go home and will refer to oncology and surgery evaluation he can go home with protonix twice daily (2) Unintentional weight loss: Code(s): R63.4 - Abnormal weight loss Status: Acute Assessment and Plan: probably from egd finding (3) Bowel habit changes: Code(s): R19.4 - Change in bowel habit Status: Acute Assessment and Plan: miralax, fiber (4) Fecal impaction: Code(s): K56.41 - Fecal impaction Status: Acute Assessment and Plan: resolved (5) Abnormal CT of the abdomen: Code(s): R93.5 - Abnormal findings on diagnostic imaging of other abdominal regions, including retroperitoneum Status: Acute (6) Adenomatous colon polyp: Code(s): D12.6 - Benign neoplasm of colon, unspecified Status: Acute Assessment and Plan: several colon polyps removed yesterday, pending bx Subjective Date/time seen: 06/16/22 14:46 Interval history: eating ok, no signs of bleeding, some rectal discomfort Review of Systems Review of Systems: All systems reviewed & are unremarkable except as noted in HPI and below Exam Const: General: comfortable and no acute distress HENMT: Face/Nose/Sinus: Normal nares present Eyes: General: appearance normal, both eyes and all related structures Neck: Neck: no JVD Resp: Auscultation: clear to auscultation bilaterally Cardio: Rate: regular rate Rhythm: regular rhythm GI: Inspection: non-distended GI Palp: Yes Soft to palpation, No Tenderness to palpation present (GI) and No Guarding due to palpation present (GI) Skin: General skin exam: normal color Neuro: General: gait normal Speech: normal speech Extrem: General: normal to inspection Psych: Mental Status: mental status grossly normal Objective Data Vital Signs Vital Signs: Vital Signs - 24 hr 06/15/22 17:00 06/15/22 20:00 06/15/22 20:00 Temperature 97.6 F 96.8 F L Pulse Rate 66 61 Respiratory Rate 16 16 Blood Pressure 154/78 H 148/71 H Pulse Oximetry 98 99 Oxygen Delivery Room Air 06/16/22 00:00 06/16/22 04:00 06/16/22 09:45 Temperature 96.4 F L 96.8 F L Pulse Rate 52 L 54 L Respiratory Rate 18 20 Blood Pressure 141/61 H 144/68 H Pulse Oximetry 100 99 Oxygen Delivery Room Air Intake/Output Intake/Output: Intake & Output 06/13/22 06/14/22 06/15/22 06/16/22 23:59 23:59 23:59 23:59 Intake Total 2680 2245 810 1337 Output Total 600 2000 825 1525 Balance 2089 915 -56 -787 Meds/Results Medications: Active Medications Generic Name Dose Route Start Last Admin Trade Name Freq PRN Reason Stop Dose Admin Acetaminophen 650 mg 06/13/22 13:19 06/16/22 09:45 Acetaminophen 325 Mg Tablet PO 650 mg Q6H PRN Administration Mild Pain (1-3) or Fever Bisacodyl 10 mg 06/16/22 11:55 06/16/22 13:08 Bisacodyl 10 Mg Suppository RECTAL 10 mg QAM ADITI Administration Docusate Sodium 100 mg 06/16/22 11:55 06/16/22 13:08 Docusate Sodium 100 Mg Capsule PO 100 mg Q12HR ADITI Administration Gabapentin 100 mg 06/15/22 13:00 06/16/22 10:01 Gabapentin 100 Mg Capsule PO 100 mg TID ADITI Administration Nicotine 1 patch 06/13/22 18:25 06/16/22 09:48 Nicotine (*Pbkc) 21 Mg Patch TRANSDERM 1 patch QAM ADITI Administration Ondansetron HCl 4 mg 06/13/22 10:19 Ondansetron Inj 4 Mg/2 Ml Vial IV PUSH Q4H PRN Nausea Pantoprazole Sodium 40 mg 06/15/22 10:50 06/16/22 09:45 Pantoprazole 40 Mg Tablet PO 40 mg Q12HR ADITI Administration Polyethylene Glycol 17 gm 06/16/22 11:55 06/16/22 13:09 Polyethylene Glycol 3350 17 Gm Powd.Pack PO 17 gm QAM ADITI Administration Radiology Resu
[2022-06-16 16:00] VITALS: BP 156/68; PULSE 71; RESP 16; TEMP 36.9; O2SAT 99
[2022-06-16 20:00] VITALS: BP 157/87; PULSE 71; RESP 16; TEMP 36.4; O2SAT 98
[2022-06-17] VITALS: BP 146/66; PULSE 59; RESP 16; TEMP 36.4; O2SAT 99
[2022-06-17 04:00] VITALS: BP 149/79; PULSE 61; RESP 18; TEMP 36.3; O2SAT 99
[2022-06-17] MEDS: ACETAMINOPHEN 325 MG TABLET 650 MG PO ×2 (05:29→14:46)
[2022-06-17 08:00] VITALS: BP 178/92; PULSE 58; RESP 16; TEMP 36.3; O2SAT 99
[2022-06-17 08:03] LABS: Basophils Percent Auto 0.3 % (0.2-1.2); Eosinophils Absolute Auto 0.1 K/mm3 (0-0.3); Hemoglobin 14.2 g/dL (14.0-18.0); Immature Granulocyte Absolute 0.03 K/mm3 (0.00-0.031); Immature Granulocyte Percent A 0.3 % (0-0.5); Lymphocytes Absolute Auto 2.94 K/mm3 (0.9-3.2); Lymphocytes Percent Auto 33.6 % (18.3-44.2); Mean Corpuscular HGB Conc 33.8 g/dl (32-36); Mean Corpuscular Hemoglobin 31.8 pg (26-34); Mean Corpuscular Volume 94.2 fl (80-100); Mean Platelet Volume 11.9 fl (7.4-10.4); Monocytes Absolute Auto 0.6 K/mm3 (0.1-0.6); Monocytes Percent Auto 7.3 % (2.6-8.5); Neutrophils Percent Auto 57.5 % (45.5-73.1); Platelet Count Result 206 k/mm3 (150-375); Red Blood Count 4.46 M/mm3 (4.6-6.20); Red Cell Distribution Width 13.8 % (11.5-14.5); White Blood Count 8.8 K/mm3 (4.5-10.0)
[2022-06-17] MEDS: NICOTINE (*PBKC) 21 MG PATCH 1 PATCH TRANSDERM (08:23)
[2022-06-17] MEDS: PANTOPRAZOLE 40 MG TABLET PO ×2 (08:23→21:02)
[2022-06-17] MEDS: GABAPENTIN 100 MG CAPSULE PO ×3 (08:23→16:10)
[2022-06-17] MEDS: DOCUSATE SODIUM 100 MG CAPSULE PO ×2 (08:24→21:02)
[2022-06-17] MEDS: polyethylene glycoL 3350 17 GM POWD.PACK PO (08:24)
[2022-06-17] MEDS: BISACODYL 10 MG SUPPOSITORY RECTAL (08:24)
[2022-06-17 10:12] LABS: Alanine Aminotransferase 19 U/L (6-50); Albumin Level 3.8 g/dL (3.5-5.1); Alkaline Phosphatase 48 U/L (38-126); Anion Gap 6 mmol/L (8-16); Aspartate Amino Transferase 22 U/L (17-59); Bilirubin,Total 0.6 mg/dL (0.2-1.3); Blood Urea Nitrogen 10 mg/dL (9-20); Calcium 8.6 mg/dL (8.4-10.2); Carbon Dioxide 26 mmol/L (22-30); Chloride 105 mmol/L (98-107); Estimated CRCL calculation 90 ml/min; Estimated Glomerular Filt Rate > 60; Glucose 191 mg/dL (65-110); Magnesium 2.3 mg/dL (1.6-2.3); Potassium 3.5 mmol/L (3.4-5.0); Sodium 137 mmol/L (137-145)
--- NOTE | 2022-06-17 11:30 | PM.IMPN ---
Progress Note: A&P Assessment and Plan (1) Fecal impaction: Code(s): K56.41 - Fecal impaction Status: Acute Assessment and Plan: Patient reports ongoing issues with constipation x4 months. MiraLax, mineral oil, stool softeners have not helped. CT of the abdomen pelvis shows evidence of fecal impaction. Sp bowel prep and colonoscopy Colonoscopy report shows - colonic polyp and diverticulosis Advance diet to low fiber diet Added suppository to the regimen Give lactulose to help stimulate a BM (2) Unintentional weight loss: Code(s): R63.4 - Abnormal weight loss Status: Acute Assessment and Plan: Concerning given the above GI symptoms. CT of the abdomen and pelvis also showed abnormal gastric thickening. Sp colonoscopy (3) Elevated blood pressure reading: Code(s): R03.0 - Elevated blood-pressure reading, without diagnosis of hypertension Status: Acute Assessment and Plan: Continue antihypertensives if indicated. Add lisinopril 5mg PO daily BP stable (4) Tobacco dependence: Code(s): F17.200 - Nicotine dependence, unspecified, uncomplicated Status: Acute Assessment and Plan: Smoking cessation is encouraged. Nicotine patch ordered per patient request. (5) Gastric ulcer: Code(s): K25.9 - Gastric ulcer, unspecified as acute or chronic, without hemorrhage or perforation Status: Acute Assessment and Plan: Noted on the EGD Could be malignant will need to follow up with GI in the office for further information Plan RLS Start gabapentin for leg cramps Time Spent With Patient Time: 38 minutes Time with patient: Greater than 35 minutes Subjective Date/time seen: 06/17/22 1130 Interval history: 06/17/22 113 Patient stated that he is doing okay today. He still has not had a bowel movement. He denies any chest pain, shortness a breath, nausea or vomiting. He did state that he is having a lot of gas and feels little bit bloated. Will try something more for a bowel movement. 06/16/22 1030 Patient is lying in bed. Patient states he feels okay however he is having a little bit of lower abdominal pain. He still has not had a BM and is worried about that. Sunday he had a colonoscopy which he was told he had a tumor free explained to him that this was from the ulcer. Appetite is better. He currently denies any chest pain, shortness a breath, nausea, vomiting, weakness or fatigue. Spoke to his daughter who stated that the patient is worried about having a BM as he is very anxious about it. Explained the findings on the colonoscopy and egd. Explained what the next steps were. He should able to DC soon. 06/15/22? 12:32 72-year-old male smoker without significant medical history (he does not think he has seen a doctor since the age of 19) who presented to the emergency department via EMS from home for evaluation of constipation and abdominal discomfort. Patient provides the following history. Up until 4 months ago he had good bowel movements 2 times a day. He is now having issues going to the bathroom and he strains to have bowel movements.? Occasionally he has to disimpact himself. When he does have a bowel movement the stools are small and hard. He has been taking will softeners, mineral oil, and MiraLax but they have not really helped. Additionally he has had generalized abdominal discomfort in the lower abdomen, a bit more so on the right side. Review of Systems Review of Systems: All systems reviewed & are unremarkable except as noted in HPI and below Exam Narrative: General: well-nourished, well-appearing 72-year-old male, sitting up in bed, comfortable, NARD Neuro: awake, alert and oriented x4, speech clear, no focal neuro deficits noted HEENMT: normocephalic, atraumatic, EOMI, sclerae anicteric, moist oral mucosa Respiratory: Clear to auscultation bilaterally
[2022-06-17 12:00] VITALS: BP 128/80; PULSE 74; RESP 14; TEMP 36.5; O2SAT 98
[2022-06-17] MEDS: LACTULOSE 20 GM/30 ML UDC PO (14:46)
[2022-06-17] MEDS: lisinopriL 5 MG TABLET PO (14:46)
[2022-06-17] MEDS: HYDROcodone/acetaminophen (*CRX) 5-325 MG TABLET 1 TAB PO ×2 (15:25→21:02)
[2022-06-17 16:00] VITALS: BP 133/91; PULSE 70; RESP 12; TEMP 36.6; O2SAT 99
--- NOTE | 2022-06-17 17:01 | WPDGIPROGNO ---
Progress Note: A&P Assessment and Plan (1) Gastric ulcer: Code(s): K25.9 - Gastric ulcer, unspecified as acute or chronic, without hemorrhage or perforation Status: Acute Assessment and Plan: still awaiting biopsies possible gastric malignancy- once we have biopsy then will refer to oncology and surgery if indicated continue with protonix twice daily (2) Unintentional weight loss: Code(s): R63.4 - Abnormal weight loss Status: Acute Assessment and Plan: probably from egd finding (3) Bowel habit changes: Code(s): R19.4 - Change in bowel habit Status: Acute Assessment and Plan: miralax, fiber suppository as needed (4) Fecal impaction: Code(s): K56.41 - Fecal impaction Status: Acute Assessment and Plan: resolved, still with constipation (5) Abnormal CT of the abdomen: Code(s): R93.5 - Abnormal findings on diagnostic imaging of other abdominal regions, including retroperitoneum Status: Acute (6) Adenomatous colon polyp: Code(s): D12.6 - Benign neoplasm of colon, unspecified Status: Acute Assessment and Plan: several colon polyps removed, pending bx Subjective Date/time seen: 06/17/22 17:01 Interval history: he is eating more, no GIB still with rectal discomfort Review of Systems Review of Systems: All systems reviewed & are unremarkable except as noted in HPI and below Exam Const: General: comfortable and no acute distress HENMT: Face/Nose/Sinus: Normal nares present Eyes: General: appearance normal, both eyes and all related structures Neck: Neck: no JVD Resp: Auscultation: clear to auscultation bilaterally Cardio: Rate: regular rate Rhythm: regular rhythm GI: Inspection: non-distended GI Palp: Yes Soft to palpation, No Tenderness to palpation present (GI) and No Guarding due to palpation present (GI) Skin: General skin exam: normal color Neuro: General: gait normal Speech: normal speech Extrem: General: normal to inspection Psych: Mental Status: mental status grossly normal Objective Data Vital Signs Vital Signs: Vital Signs - 24 hr 06/16/22 20:00 06/17/22 00:00 06/17/22 04:00 Temperature 97.5 F L 97.6 F 97.4 F L Pulse Rate 71 59 L 61 Respiratory Rate 16 16 18 Blood Pressure 157/87 H 146/66 H 149/79 H Pulse Oximetry 98 99 99 Oxygen Delivery 06/17/22 08:00 06/17/22 08:40 06/17/22 12:00 Temperature 97.4 F L 97.7 F Pulse Rate 58 L 74 Respiratory Rate 16 14 Blood Pressure 178/92 H 128/80 Pulse Oximetry 99 98 Oxygen Delivery Room Air 06/17/22 16:00 Temperature 97.8 F Pulse Rate 70 Respiratory Rate 12 Blood Pressure 133/91 H Pulse Oximetry 99 Oxygen Delivery Intake/Output Intake/Output: Intake & Output 06/14/22 06/15/22 06/16/22 06/17/22 23:59 23:59 23:59 23:59 Intake Total 2245 810 2697 1260 Output Total 1999 826 1525 1125 Balance 245 -15 1172 135 Meds/Results Medications: Active Medications Generic Name Dose Route Start Last Admin Trade Name Freq PRN Reason Stop Dose Admin Acetaminophen 650 mg 06/13/22 13:19 06/17/22 14:46 Acetaminophen 325 Mg Tablet PO 650 mg Q6H PRN Administration Mild Pain (1-3) or Fever Hydrocodone Bitart/Acetaminophen 1 tab 06/17/22 15:11 06/17/22 15:25 Hydrocodone/Acetaminophen (*Crx) 5-325 Mg Tablet PO 1 tab Q6H PRN Administration Pain Rated 4-6 Bisacodyl 10 mg 06/16/22 11:55 06/17/22 08:24 Bisacodyl 10 Mg Suppository RECTAL 10 mg QAM ADITI Administration Docusate Sodium 100 mg 06/16/22 11:55 06/17/22 08:24 Docusate Sodium 100 Mg Capsule PO 100 mg Q12HR ADITI Administration Gabapentin 100 mg 06/15/22 13:00 06/17/22 16:10 Gabapentin 100 Mg Capsule PO 100 mg TID ADITI Administration Lactulose 20 gm 06/17/22 17:00 06/17/22 16:11 Lactulose 20 Gm/30 Ml Udc PO Not Given BID ADITI Lisinopril 5 mg 06/17/22 13:20 06/17/22 14:46 Lis
[2022-06-17 20:00] VITALS: BP 147/81; PULSE 64; RESP 13; TEMP 36.4; O2SAT 99
[2022-06-18] VITALS: BP 143/61; PULSE 56; RESP 14; TEMP 36.4; O2SAT 99
[2022-06-18 04:00] VITALS: BP 131/68; PULSE 55; RESP 14; TEMP 36.2; O2SAT 98
[2022-06-18 08:00] VITALS: BP 149/68; PULSE 60; RESP 16; TEMP 36.6; O2SAT 98
[2022-06-18] MEDS: polyethylene glycoL 3350 17 GM POWD.PACK PO (08:07)
[2022-06-18] MEDS: GABAPENTIN 100 MG CAPSULE PO ×3 (08:08→16:34)
[2022-06-18] MEDS: NICOTINE (*PBKC) 21 MG PATCH 1 PATCH TRANSDERM (08:08)
[2022-06-18] MEDS: BISACODYL 10 MG SUPPOSITORY RECTAL (08:08)
[2022-06-18] MEDS: DOCUSATE SODIUM 100 MG CAPSULE PO (08:08)
[2022-06-18] MEDS: PANTOPRAZOLE 40 MG TABLET PO (08:08)
[2022-06-18] MEDS: lisinopriL 5 MG TABLET PO (08:08)
[2022-06-18] MEDS: LACTULOSE 20 GM/30 ML UDC PO (08:08)
--- NOTE | 2022-06-18 11:15 | PM.DS ---
DS: Admitting Diagnosis Discharge Date 06/18/22 1115 Admitting Diagnosis PUD, Fecal impaction DS: Discharge Diagnosis Discharge Diagnosis (1) Fecal impaction: Code(s): K56.41 - Fecal impaction Status: Acute Assessment and Plan: Patient reports ongoing issues with constipation x4 months. MiraLax, mineral oil, stool softeners have not helped. CT of the abdomen pelvis shows evidence of fecal impaction. Sp bowel prep and colonoscopy Colonoscopy report shows - colonic polyp and diverticulosis Advance diet to low fiber diet Added suppository to the regimen Give lactulose to help stimulate a BM (2) Unintentional weight loss: Code(s): R63.4 - Abnormal weight loss Status: Acute Assessment and Plan: Concerning given the above GI symptoms. CT of the abdomen and pelvis also showed abnormal gastric thickening. Sp colonoscopy (3) Elevated blood pressure reading: Code(s): R03.0 - Elevated blood-pressure reading, without diagnosis of hypertension Status: Acute Assessment and Plan: 178/92 Continue antihypertensives if indicated. Add lisinopril 5mg PO daily BP stable (4) Tobacco dependence: Code(s): F17.200 - Nicotine dependence, unspecified, uncomplicated Status: Acute Assessment and Plan: Smoking cessation is encouraged. Nicotine patch ordered per patient request. (5) Gastric ulcer: Code(s): K25.9 - Gastric ulcer, unspecified as acute or chronic, without hemorrhage or perforation Status: Acute Assessment and Plan: Noted on the EGD Could be malignant will need to follow up with GI in the office for further information Plan RLS Start gabapentin for leg cramps DS: Summary Hospital Course Hospital Course: Patient is 72-year-old male with past medical history of tobacco dependence who presented the ED with complaints constipation and abdominal discomfort. Upon arrival patient was noted to have fecal impaction per CT along with rectum and gastric wall thickening. GI was consulted and patient was taken to the GI lab for colonoscopy an EGD. EGD did show significant large ulcers suspicious for malignancy. Colonoscopy also had multiple very large polyps which were removed. Patient was noted to be fecal impacted and MiraLax, Colace, senna, suppositories did not help. Patient has been placed on lactulose and has been successful with having a bowel movement. Patient does still have some rectal pain as the stool that he passed was very large and hard. Currently patient is stable per labs and vital signs. Biopsies have been taken and pathology is still pending. Labs and vital signs have been stable. Patient has been able to tolerate a diet has been eating more. It was also noted the patient did have an elevated blood pressure reading and has been started on lisinopril. And blood pressure has been more stable. Patient is stable for discharge at this time. Daughter and patient have been educated and documentation has been reviewed with both of them together. Patient has been given education of when to return. Patient currently denies any chest pain, shortness a breath, nausea, vomiting, diarrhea or constipation. Status at Discharge Functional status at discharge: independent ambulation Overall status at discharge: patient is progressing back to baseline Time Spent with Patient Time attestation: Total time spent providing and/or coordinating discharge services: 52 minutes Time spent: Greater than 30 minutes Specific discharge activities: Diagnostic testing, chart review, developing a treatment plan, education, care coordination documentation, physical exam, result review Exam Narrative: General: well-nourished, well-appearing 72-year-old male, sitting up in bed, comfortable, NARD Neuro: awake, alert and oriented x4, speech clear, no focal neuro deficits noted HEENMT: normocephalic, atraumatic, E
[2022-06-18 12:00] VITALS: BP 163/84; PULSE 81; RESP 18; TEMP 36.7; O2SAT 99
[2022-06-18] MEDS: HYDROcodone/acetaminophen (*CRX) 5-325 MG TABLET 1 TAB PO ×2 (12:13→17:47)
[2022-06-18 16:00] VITALS: BP 161/78; PULSE 69; RESP 20; TEMP 36.7; O2SAT 100
--- NOTE | 2022-06-18 17:20 | WPDGIPROGNO ---
Progress Note: A&P Assessment and Plan (1) Gastric ulcer: Code(s): K25.9 - Gastric ulcer, unspecified as acute or chronic, without hemorrhage or perforation Status: Acute Assessment and Plan: pending biopsies possible gastric malignancy- once we have biopsy then will refer to oncology and surgery if indicated he is going home with protonix twice daily (2) Unintentional weight loss: Code(s): R63.4 - Abnormal weight loss Status: Acute Assessment and Plan: probably from egd finding (3) Bowel habit changes: Code(s): R19.4 - Change in bowel habit Status: Acute Assessment and Plan: miralax, fiber suppository as needed (4) Fecal impaction: Code(s): K56.41 - Fecal impaction Status: Acute Assessment and Plan: resolved, still with constipation (5) Abnormal CT of the abdomen: Code(s): R93.5 - Abnormal findings on diagnostic imaging of other abdominal regions, including retroperitoneum Status: Acute (6) Adenomatous colon polyp: Code(s): D12.6 - Benign neoplasm of colon, unspecified Status: Acute Assessment and Plan: several colon polyps removed, pending bx next colonoscopy 6 months Subjective Date/time seen: 06/18/22 17:20 Interval history: better, less rectal discomfort and feeling with more energy, going home today Review of Systems Review of Systems: All systems reviewed & are unremarkable except as noted in HPI and below Exam Const: General: comfortable and no acute distress HENMT: Face/Nose/Sinus: Normal nares present Eyes: General: appearance normal, both eyes and all related structures Neck: Neck: no JVD Resp: Auscultation: clear to auscultation bilaterally Cardio: Rate: regular rate Rhythm: regular rhythm GI: Inspection: non-distended GI Palp: Yes Soft to palpation, No Tenderness to palpation present (GI) and No Guarding due to palpation present (GI) Skin: General skin exam: normal color Neuro: General: gait normal Speech: normal speech Extrem: General: normal to inspection Psych: Mental Status: mental status grossly normal Objective Data Vital Signs Vital Signs: Vital Signs - 24 hr 06/17/22 20:00 06/18/22 00:00 06/18/22 04:00 Temperature 97.5 F L 97.5 F L 97.2 F L Pulse Rate 64 56 L 55 L Respiratory Rate 13 14 14 Blood Pressure 147/81 H 143/61 H 131/68 Pulse Oximetry 99 99 98 Oxygen Delivery 06/18/22 08:00 06/18/22 08:10 06/18/22 12:00 Temperature 97.8 F 98.1 F Pulse Rate 60 81 Respiratory Rate 16 18 Blood Pressure 149/68 H 163/84 H Pulse Oximetry 98 99 Oxygen Delivery Room Air 06/18/22 16:00 Temperature 98.1 F Pulse Rate 69 Respiratory Rate 20 Blood Pressure 161/78 H Pulse Oximetry 100 Oxygen Delivery Intake/Output Intake/Output: Intake & Output 06/15/22 06/16/22 06/17/22 06/18/22 23:59 23:59 23:59 23:59 Intake Total 810 2697 1930 1370 Output Total 825 1525 1350 500 Balance -15 1172 580 870 Meds/Results Medications: Active Medications Generic Name Dose Route Start Last Admin Trade Name Freq PRN Reason Stop Dose Admin Acetaminophen 650 mg 06/13/22 13:19 06/17/22 14:46 Acetaminophen 325 Mg Tablet PO 650 mg Q6H PRN Administration Mild Pain (1-3) or Fever Hydrocodone Bitart/Acetaminophen 1 tab 06/17/22 15:11 06/18/22 12:13 Hydrocodone/Acetaminophen (*Crx) 5-325 Mg Tablet PO 1 tab Q6H PRN Administration Pain Rated 4-6 Bisacodyl 10 mg 06/16/22 11:55 06/18/22 08:08 Bisacodyl 10 Mg Suppository RECTAL 10 mg QAM ADITI Administration Docusate Sodium 100 mg 06/16/22 11:55 06/18/22 08:08 Docusate Sodium 100 Mg Capsule PO 100 mg Q12HR ADITI Administration Gabapentin 100 mg 06/15/22 13:00 06/18/22 16:34 Gabapentin 100 Mg Capsule PO 100 mg TID ADITI Administration Lactulose 20 gm 06/17/22 17:00 06/18/22 16:35 Lactulose 20 Gm/30 Ml Udc PO Not Given BID ADITI Lisin
== END 2022-06-18 18:15 | disposition home or self-care (01) | DRG 388 ==
LOC: ANHED 07:10 → ANH3MEDSUR 11:28
PROVIDERS: Family Medicine; Internal Medicine Gastroenterology; Physician Assistant; Admitting Provider Internal Medicine; Emergency Provider Emergency Medicine; PCP Family Medicine; Visit Provider Nurse Practitioner
PROC: 0DJ08ZZ Inspection of Upper Intestinal Tract, Via Natural or Artificial Opening Endoscopic (ICD-10-PCS; CPT 43235; principal; 2022-06-14 16:45)
DX: K56.41 Fecal impaction (principal); E43 Unspecified severe protein-calorie malnutrition; Z68.1 Body mass index [BMI] 19.9 or less, adult; Z20.822 Contact with and (suspected) exposure to COVID-19; R63.4 Abnormal weight loss; R19.4 Change in bowel habit; R03.0 Elevated blood-pressure reading, without diagnosis of hypertension; K25.7 Chronic gastric ulcer without hemorrhage or perforation; K22.70 Barrett's esophagus without dysplasia; K29.70 Gastritis, unspecified, without bleeding; K57.30 Diverticulosis of large intestine without perforation or abscess without bleeding; K63.5 Polyp of colon; K64.8 Other hemorrhoids; F17.210 Nicotine dependence, cigarettes, uncomplicated
CPT/HCPCS: 36415; 71046; 74177; 80048; 80053; 81001; 83690; 83735; 84443; 85025; 85027; 87636; 88305; 88342; 96361; 96374; 96375; 96376; 99285; A9270; C9113; G0378; J2270; J2704; J7030; J7120; Q9967

== ENCOUNTER 2022-07-07 01:28 | Day surgery (SDC) | payer MEDICARE, SELFPAY ==
[2022-06-28 12:42] VITALS: BMI 19.2
[2022-07-07 12:46] VITALS: BP 156/93; PULSE 93; RESP 18; TEMP 36.3; O2SAT 99
[2022-07-07] MEDS: LACTATED RINGERS 1,000 ML 150 ML IV CONT (12:49)
--- NOTE | 2022-07-07 12:49 | WPDANESEPPF ---
Anes - Initial Pre Proc Eval Procedure: Operation Date: 07/07/22 14:00 Proposed Procedures p Esophagogastroduodenoscopy - Ananth Nguyen MD Date/Time: 07/07/22 12:49 Surgeon: Ananth Nguyen MD Pre Op Diagnosis: Gastric Ulcer Patient Data Age: 72 Gender: M Height: 1.85 m Weight: 65.8 kg Last Vital Signs Temp 36.3 C L 07/07/22 12:46 Pulse 93 07/07/22 12:46 Resp 18 07/07/22 12:46 BP 156/93 H 07/07/22 12:46 Pulse Ox 99 07/07/22 12:46 O2 Del Method Room Air 07/07/22 12:46 Allergies Allergy/AdvReac Type Severity Reaction Status Date / Time No Known Allergies Allergy Verified 07/07/22 12:45 Home Medications Medication Instructions Recorded Confirmed Type pantoprazole 40 mg tablet,delayed 40 mg PO Q12HR #60 tabs 06/16/22 07/07/22 Rx release docusate sodium 100 mg capsule 100 mg PO Q12HR #60 caps 06/18/22 07/07/22 Rx gabapentin 100 mg capsule 100 mg PO TID #90 caps 06/18/22 07/07/22 Rx hydrocodone 5 mg-acetaminophen 325 1 tablet PO Q6H PRN Pain Rated 4-6 06/18/22 07/07/22 Rx mg tablet #20 tabs lisinopril 5 mg tablet 5 mg PO QAM #30 tabs 06/18/22 07/07/22 Rx polyethylene glycol 3350 17 gram 17 g PO QAM #30 ea 06/18/22 07/07/22 Rx oral powder packet (Miralax) acetaminophen 500 mg tablet 500 mg PO TID 06/28/22 07/07/22 History Patient hx anesthesia problems: none Family hx anesthesia problems: none Results Review: All pre-operative results and documents have been reviewed as part of the pre-operative evaluation. [facility] Past Medical History Medical History Adenomatous colon polyp Gastric ulcer Tobacco dependence Surgical History Surgical History History of open reduction and internal fixation (ORIF) procedure Repair of compound like fracture. Family History Family History Father Acute myocardial infarction Hypertension Mother Diabetes mellitus Acute myocardial infarction Congestive heart failure Hypertension Daughter Cerebrovascular accident Pseudocholinesterase deficiency Grandparent Diabetes mellitus Congestive heart failure Hypertension Cerebrovascular accident Social History Social History Social History: Surrogate medical decision maker: Debbie Lund, daughter. Code status: Full code. Smoking packs per day: 1.5 Smoking cigarettes per day: 30.0 Years smoked: 60 Smoking pack-years: 90.00 Smoking status: Current every day smoker Tobacco type: cigarettes Alcohol intake: former Substance use: current Substance use type: marijuana and prescription drug Other substance usage details: hydrocodone/acetaminophen 1 daily prn hs; daily marijuana Lack of Transportation: No Lack of Food: Never True Current Housing: I Have Housing Concerned About Future Housing: No Difficulty Paying Gas/Electric Bills: No Difficulty Paying for Meds: No Currently Unemployed: No Education: High School Diploma/GED Difficulty w/ Childcare or Family Care: No Living arrangements: with family Spiritual care concerns: No Anes - Eval Final PreProcedure Day of Procedure 07/07/22 12:49 Patient weight: normal Heart: regular rate and rhythm Lungs: clear to auscultation Airway: Mallampati scale class II Neurological: alert and oriented Last oral intake: >/= 8 hours ASA classification: III Emergent: no Anesthetic plan: proceed Anesthesia type and monitoring: general GIVS and standard monitoring Results Review: All pre-operative results and documents have been reviewed as part of the pre-operative evaluation. Informed Consent: The patient's anesthetic plan and its attendant risks and benefits were discussed with the patient/family/POA. Questions were solicited and answers provided to th
--- NOTE | 2022-07-07 13:09 | WPDHPUPDATE1 ---
History and Physical Update Update Date/Time: 07/07/22 13:09 History and Physical has been reviewed, including an updated exam of the patient. There are NO changes in the patient's condition. Risks, benefits, and alternatives have been discussed and questions answered. Patient agrees to proceed with procedure.
[2022-07-07 13:33] VITALS: BP 125/72; PULSE 76; RESP 15; O2SAT 94
[2022-07-07 13:43] VITALS: BP 122/71; PULSE 70; RESP 18; O2SAT 95
[2022-07-07 13:53] VITALS: BP 124/75; PULSE 77; RESP 19; O2SAT 97
== END 2022-07-07 13:57 | disposition home or self-care (01) ==
PROVIDERS: PCP Family Medicine; Visit Provider Internal Medicine Gastroenterology
PROC: 0DJ08ZZ Inspection of Upper Intestinal Tract, Via Natural or Artificial Opening Endoscopic (ICD-10-PCS; CPT 43235; principal; 2022-07-07 14:00)
DX: K25.9 Gastric ulcer, unspecified as acute or chronic, without hemorrhage or perforation (principal); K22.70 Barrett's esophagus without dysplasia; K44.9 Diaphragmatic hernia without obstruction or gangrene; K29.50 Unspecified chronic gastritis without bleeding; Z79.891 Long term (current) use of opiate analgesic; F17.210 Nicotine dependence, cigarettes, uncomplicated; F12.90 Cannabis use, unspecified, uncomplicated
CPT/HCPCS: 43239; 88305; 88342; J2704; J7120

== ENCOUNTER 2022-07-18 09:17 | Outpatient (CLI) | payer MEDICARE, SELFPAY ==
[2022-07-18 19:04] LABS: Basophils Absolute Auto 0.1 K/mm3 (0.0-0.1); Basophils Percent Auto 0.5 % (0.2-1.2); Eosinophils Absolute Auto 0.1 K/mm3 (0-0.3); Eosinophils Percent Auto 0.6 % (0-4.4); Hematocrit 52.4 % (42.0-52.0); Hemoglobin 16.9 g/dL (14.0-18.0); Immature Granulocyte Absolute 0.04 K/mm3 (0.00-0.031); Immature Granulocyte Percent A 0.3 % (0-0.5); Lymphocytes Absolute Auto 4.88 K/mm3 (0.9-3.2); Lymphocytes Percent Auto 39.2 % (18.3-44.2); Mean Corpuscular HGB Conc 32.3 g/dl (32-36); Mean Corpuscular Hemoglobin 31.9 pg (26-34); Mean Corpuscular Volume 99.1 fl (80-100); Mean Platelet Volume 10.2 fl (7.4-10.4); Monocytes Absolute Auto 0.9 K/mm3 (0.1-0.6); Neutrophils Absolute Auto 6.5 K/mm3 (1.3-6.7); Neutrophils Percent Auto 52.4 % (45.5-73.1); Platelet Count Result 293 k/mm3 (150-375); Red Blood Count 5.29 M/mm3 (4.6-6.20); Red Cell Distribution Width 15.2 % (11.5-14.5); White Blood Count 12.4 K/mm3 (4.5-10.0)
[2022-07-18 20:40] LABS: Anion Gap 14 mmol/L (8-16); Blood Urea Nitrogen 10 mg/dL (9-20); Calcium 10.3 mg/dL (8.4-10.2); Carbon Dioxide 21 mmol/L (22-30); Chloride 109 mmol/L (98-107); Cholesterol 289 mg/dL (0-200); Estimated Glomerular Filt Rate > 60; Glucose 103 mg/dL (65-110); HDL Direct 50 mg/dL; Potassium 4.5 mmol/L (3.4-5.0); Sodium 144 mmol/L (137-145); Triglycerides 211 mg/dL (<150)
[2022-07-18 20:51] LABS: LDL Cholesterol Direct 182 mg/dL
== END 2022-07-18 09:18 | disposition home or self-care (01) ==
LOC: ANHGOSHLAB 09:19
PROVIDERS: PCP Family Medicine; Visit Provider Nurse Practitioner Family
DX: K25.9 Gastric ulcer, unspecified as acute or chronic, without hemorrhage or perforation (principal); I10 Essential (primary) hypertension; R63.4 Abnormal weight loss
CPT/HCPCS: 36415; 80048; 80061; 84443; 85025

== ENCOUNTER 2022-12-28 10:26 | Outpatient (CLI) | payer MEDICARE, SELFPAY ==
[2022-12-28 19:04] LABS: Hematocrit 48.6 % (42.0-52.0); Hemoglobin 16.1 g/dL (14.0-18.0); Mean Corpuscular HGB Conc 33.1 g/dl (32-36); Mean Corpuscular Hemoglobin 32.4 pg (26-34); Mean Corpuscular Volume 97.8 fl (80-100); Mean Platelet Volume 10.5 fl (7.4-10.4); Platelet Count Result 260 k/mm3 (150-375); Red Blood Count 4.97 M/mm3 (4.6-6.20); Red Cell Distribution Width 13.7 % (11.5-14.5); White Blood Count 10.5 K/mm3 (4.5-10.0)
[2022-12-28 19:31] LABS: Alanine Aminotransferase 13 U/L (6-50); Albumin Level 4.3 g/dL (3.5-5.1); Alkaline Phosphatase 55 U/L (38-126); Anion Gap 7 mmol/L (8-16); Aspartate Amino Transferase 28 U/L (17-59); Bilirubin,Total 0.5 mg/dL (0.2-1.3); Blood Urea Nitrogen 12 mg/dL (9-20); Calcium 9.3 mg/dL (8.4-10.2); Carbon Dioxide 27 mmol/L (22-30); Chloride 105 mmol/L (98-107); Cholesterol 216 mg/dL (0-200); Estimated Glomerular Filt Rate > 60; Glucose 90 mg/dL (65-110); HDL Direct 52 mg/dL; Potassium 4.2 mmol/L (3.4-5.0); Sodium 139 mmol/L (137-145); Triglycerides 136 mg/dL (<150)
[2022-12-28 19:43] LABS: LDL Cholesterol Direct 122 mg/dL
[2022-12-28 19:54] LABS: Prostate Specific Antigen 0.8 ng/mL (< OR = 4.0); Thyroid Stimulating Hormone 0.674 uIU/mL (0.465-4.680)
[2022-12-30 10:54] LABS: Amphetamines NEGATIVE ng/mL (<500); Barbiturates NEGATIVE ng/mL (<300); Benzodiazepines NEGATIVE ng/mL (<100); Cocaine Metabolite NEGATIVE ng/mL (<150); Marijuana Metabolite POSITIVE ng/mL (<20); Methadone Metabolite NEGATIVE ng/mL (<100); Opiates POSITIVE ng/mL (<100); Oxidant NEGATIVE mcg/mL (<200)
== END 2022-12-28 10:27 | disposition home or self-care (01) ==
PROVIDERS: PCP Family Medicine; Visit Provider Family Medicine
DX: E78.5 Hyperlipidemia, unspecified (principal); I10 Essential (primary) hypertension; R63.4 Abnormal weight loss; Z12.5 Encounter for screening for malignant neoplasm of prostate; Z79.899 Other long term (current) drug therapy
CPT/HCPCS: 36415; 80053; 80061; 80307; 84153; 84443; 85027; G0103

== ENCOUNTER 2023-01-02 12:53 | Outpatient (CLI) | payer MEDICARE, SELFPAY ==
--- NOTE | ~2023-01-02 | CT_ITS ---
CT Scan of the Chest without Contrast: Clinical Indication: Lung cancer screening, personal history of nicotine dependence Technique: Contiguous sections were acquired throughout the chest without intravenous contrast. Dose reduction technique was used on this scan by utilizing automated exposure control and iterative recon struction technique. The dose-length product (DLP) was 90.76 mGy-cm. Findings: There is no evidence of any significant mediastinal, hilar or axillary lymphadenopathy. There are ath erosclerotic calcific disease of the aorta and coronary arteries. There is no evidence of pleural or pericardial effusion. There are several tiny peripheral subcentimeter 1-2 mm nodules.. Images through the upper abdomen reveal no abnormalities. There is DISH of the thoracic spine. Impression: Lung RADS 2: Benign appearance. [address] advised. Reviewed, dictated and finalized at [facility]. Impression: Lung RADS 2: Benign appearance. [address] advised.
--- NOTE | ~2023-01-02 | CT_ITS ---
Non-contrast CT scan of the Abdomen and Pelvis Clinical indication: Weight loss Technique: 2.5 mm axial scans were obtained through the abdomen and pelvis without intravenous or or al contrast. Dose reduction technique was used on this scan by utilizing automated exposure control a nd iterative reconstruction technique. The dose-length product (DLP) was 368.13 mGy-cm. COMPARISON: 06/13/2022 Findings: Images through the lung bases reveal no abnormalities. There is no evidence of renal or ureteral calculi. The kidneys and the ureters are nondilated. The liver, spleen, pancreas, gallbladder, and adrenals appear normal. There are atherosclerotic calci fications of the aorta. There is no evidence of bowel obstruction. There is a 1.8 cm enlarged presumed right perirectal lymph node (axial image 141). Images through the pelvis were performed. There is no evidence of ascites or lymphadenopathy. Urinary bladder unremarkable. Prostate gland is enlarged, and indents the bladder base. Impression: 1.8 cm enlarged right perirectal lymph node, as detailed above. This is suspicious for neoplastic dis ease, possibly from either rectal carcinoma or prostate carcinoma. This lesion would be amenable to p ercutaneous biopsy, and tissue sampling is recommended to establish a histologic diagnosis. No definite underlying primary lesion is clearly delineated on this exam. Enlarged prostate gland. Reviewed, dictated and finalized at location [facility]. Impression: 1.8 cm enlarged right perirectal lymph node, as detailed above. This is suspici ous for neoplastic disease, possibly from either rectal carcinoma or prostate c arcinoma. This lesion would be amenable to percutaneous biopsy, and tissue samp ling is recommended to establish a histologic diagnosis. No definite underlying primary lesion is clearly delineated on this exam. Enlarged prostate gland.
== END 2023-01-02 12:54 ==
LOC: GOSHIMG 12:54
PROVIDERS: PCP Family Medicine; Visit Provider Family Medicine
DX: Z12.2 Encounter for screening for malignant neoplasm of respiratory organs (principal); N40.0 Benign prostatic hyperplasia without lower urinary tract symptoms; R59.0 Localized enlarged lymph nodes; R63.4 Abnormal weight loss; Z87.891 Personal history of nicotine dependence
CPT/HCPCS: 71271; 74176

== ENCOUNTER 2023-01-15 00:48 | Day surgery (SDC) | payer MEDICARE, SELFPAY ==
[2022-12-28 15:37] VITALS: BMI 17.6
[2023-01-15 08:56] VITALS: BP 140/86; PULSE 74; RESP 18; TEMP 36.3; O2SAT 99
[2023-01-15] MEDS: LACTATED RINGERS 1,000 ML 150 ML IV CONT (09:06)
--- NOTE | 2023-01-15 09:12 | WPDANESEPPF ---
Anes - Initial Pre Proc Eval Procedure: Operation Date: 01/15/23 10:00 Proposed Procedures p Esophagogastroduodenoscopy - Ananth Nguyen MD Date/Time: 01/15/23 09:12 Surgeon: Ananth Nguyen MD Pre Op Diagnosis: gastric ulcer Patient Data Age: 72 Gender: M Height: 1.83 m Weight: 57.4 kg Last Vital Signs Temp 97.4 F L 01/15/23 08:56 Pulse 74 01/15/23 08:56 Resp 18 01/15/23 08:56 BP 140/86 01/15/23 08:56 Pulse Ox 99 01/15/23 08:56 O2 Del Method Room Air 01/15/23 08:56 Allergies Allergy/AdvReac Type Severity Reaction Status Date / Time No Known Allergies Allergy Verified 01/15/23 08:54 Home Medications Medication Instructions Recorded Confirmed Type docusate sodium 100 mg capsule 100 mg PO Q12HR #60 caps 06/18/22 12/28/22 Rx acetaminophen 500 mg tablet 500 mg PO TID 06/28/22 12/28/22 History pantoprazole 40 mg tablet,delayed 40 mg PO Q12HR #60 tabs 07/07/22 12/28/22 Rx release polyethylene glycol 3350 17 gram 17 g PO QAM #30 ea 07/19/22 12/28/22 Rx oral powder packet (Miralax) gabapentin 100 mg capsule 100 mg PO TID #90 caps 10/02/22 12/28/22 Rx lisinopril 5 mg tablet 5 mg PO QAM #30 tabs 12/26/22 12/28/22 Rx trazodone 50 mg tablet 50 mg PO QHS PRN insomnia #30 tabs 12/26/22 12/28/22 Rx atorvastatin 20 mg tablet 20 mg PO QHS #90 tabs 12/28/22 12/28/22 Rx hydrocodone 5 mg-acetaminophen 325 1 tablet PO Q6-8H PRN pain #30 tabs 12/28/22 12/28/22 Rx mg tablet Patient hx anesthesia problems: none Family hx anesthesia problems: none Results Review: All pre-operative results and documents have been reviewed as part of the pre-operative evaluation. [facility] Past Medical History Medical History (Updated 01/04/23 @ 14:44 by Farrah Josue DO) Abnormal CT of the abdomen Adenomatous colon polyp Elevated blood pressure reading Gastric ulcer Tobacco dependence Surgical History Surgical History H/O esophagogastroduodenoscopy History of open reduction and internal fixation (ORIF) procedure Repair of compound like fracture. Family History Family History Father Acute myocardial infarction Hypertension Mother Diabetes mellitus Acute myocardial infarction Congestive heart failure Hypertension Daughter Cerebrovascular accident Pseudocholinesterase deficiency Grandparent Diabetes mellitus Congestive heart failure Hypertension Cerebrovascular accident Social History Social History Social History: Surrogate medical decision maker: Debbie Lund, daughter. Code status: Full code. Smoking packs per day: 1.5 Smoking cigarettes per day: 30.0 Years smoked: 60 Smoking pack-years: 90.00 Smoking status: Current every day smoker Tobacco type: cigarettes Alcohol intake: former Substance use: current Substance use type: marijuana Other substance usage details: hydrocodone/acetaminophen 1 daily prn hs; daily marijuana Last use: daily Lack of Transportation: No Lack of Food: Never True Current Housing: I Have Housing Concerned About Future Housing: No Difficulty Paying Gas/Electric Bills: No Difficulty Paying for Meds: No Currently Unemployed: No Education: High School Diploma/GED Difficulty w/ Childcare or Family Care: No Living arrangements: with family Spiritual care concerns: No Anes - Eval Final PreProcedure Day of Procedure 01/15/23 09:12 Patient weight: normal Heart: regular rate and rhythm Lungs: clear to auscultation Airway: Mallampati scale class II Neurological: alert and oriented Last oral intake: >/= 8 hours ASA classification: II Emergent: no Anesthetic plan: proceed Anesthesia type and monitoring: general GIVS and standard monitoring Results Review: All pre-operative results and documents
--- NOTE | 2023-01-15 09:35 | PM.HPGS ---
History of Present Illness History of Present Illness Consent: Risks, benefits, and alternatives have been discussed and questions answered. Patient agrees to proceed with procedure. 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 Still with rectal discomfort, last colonoscopy with several polyps. Recent CT showed 1.8 cm enlarged right perirectal lymph node Review of Systems Constitutional: Constitutional: Denies headache(s) and Reports weight loss Eyes: Eyes: Denies blurry vision ENT: Reports Normal hearing present, Denies headache(s) and Denies neck pain Cardiovascular: Cardiovascular: Denies chest pain and Denies dyspnea Respiratory: Respiratory: Denies dyspnea Gastrointestinal: Gastrointestinal: Reports no additional gastrointestinal complaints Genitourinary: Genitourinary: Denies dysuria Musculoskeletal: Musculoskeletal: Denies neck pain Integumentary/Breasts: Skin/Breast: Denies dry skin Neurologic: Reports Normal hearing present, Denies headache(s) and Denies weakness Psychiatric: Psychiatric: Denies anxiety Endocrine: Endocrine: Denies change in body appearance Hematologic/Lymphatic: Hematologic/Lymphatic: Denies easy bleeding Allergic/Immunologic: Allergic/Immunologic: Denies urticaria PMFSH Past Medical History Medical History (Updated 01/15/23 @ 09:37 by Ananth Nguyen MD) Abnormal CT of the abdomen Adenomatous colon polyp Cedeño esophagus Elevated blood pressure reading Gastric ulcer Tobacco dependence Surgical History Surgical History H/O esophagogastroduodenoscopy History of open reduction and internal fixation (ORIF) procedure Repair of compound like fracture. Family History Family History Father Acute myocardial infarction Hypertension Mother Diabetes mellitus Acute myocardial infarction Congestive heart failure Hypertension Daughter Cerebrovascular accident Pseudocholinesterase deficiency Grandparent Diabetes mellitus Congestive heart failure Hypertension Cerebrovascular accident Social History Social History Social History: Surrogate medical decision maker: Debbie Lund, daughter. Code status: Full code. Smoking packs per day: 1.5 Smoking cigarettes per day: 30.0 Years smoked: 60 Smoking pack-years: 90.00 Smoking status: Current every day smoker Tobacco type: cigarettes Alcohol intake: former Substance use: current Substance use type: marijuana Other substance usage details: hydrocodone/acetaminophen 1 daily prn hs; daily marijuana Last use: daily Lack of Transportation: No Lack of Food: Never True Current Housing: I Have Housing Concerned About Future Housing: No Difficulty Paying Gas/Electric Bills: No Difficulty Paying for Meds: No Currently Unemployed: No Education: High School Diploma/GED Difficulty w/ Childcare or Family Care: No Living arrangements: with family Spiritual care concerns: No Meds Home Medications and Allergies Home Medications Medication Instructions Recorded Confirmed Type docusate sodium 100 mg capsule 100 mg PO Q12HR #60 caps 06/18/22 12/28/22 Rx acetaminophen 500 mg tablet 500 mg PO TID 06/28/22 12/28/22 History pantoprazole 40 mg tablet,delayed 40 mg PO Q12HR #60 tabs 07/07/22 12/28/22 Rx release polyethylene glycol 3350 17 gram 17 g PO QAM #30 ea 07/19/22 12/28/22 Rx oral powder packet (Miralax) gabapentin 100 mg capsule 100 mg PO TID #90 caps 10/02/22 12/28/22 Rx lisinopril 5 mg tablet 5 mg PO QAM #30 tabs 12/26/22 12/28/22 Rx trazodone 50 mg tablet 50 mg PO QHS PRN insomnia #30 tabs 12/26/22 12/28/22 Rx atorvastatin 20 mg tablet 20 mg PO QHS #90 tabs 12/28/22 12/28/22 Rx hydrocodone 5 mg-
[2023-01-15 09:49] VITALS: BP 126/62; PULSE 62; RESP 20; O2SAT 99
[2023-01-15 09:59] VITALS: BP 125/84; PULSE 60; RESP 22; O2SAT 100
[2023-01-15 10:09] VITALS: BP 142/76; PULSE 65; RESP 14; O2SAT 100
== END 2023-01-15 10:18 | disposition home or self-care (01) ==
PROVIDERS: PCP Family Medicine; Visit Provider Internal Medicine Gastroenterology
PROC: 0DJ08ZZ Inspection of Upper Intestinal Tract, Via Natural or Artificial Opening Endoscopic (ICD-10-PCS; CPT 43235; principal; 2023-01-15 10:00)
DX: K22.70 Barrett's esophagus without dysplasia (principal); K29.70 Gastritis, unspecified, without bleeding; K21.9 Gastro-esophageal reflux disease without esophagitis; Z87.11 Personal history of peptic ulcer disease; F17.210 Nicotine dependence, cigarettes, uncomplicated; F12.90 Cannabis use, unspecified, uncomplicated; Z79.891 Long term (current) use of opiate analgesic
CPT/HCPCS: 43239; 88305; J2704; J7120

== ENCOUNTER 2023-01-23 00:28 | Day surgery (SDC) | payer MEDICARE, SELFPAY ==
[2023-01-18 08:50] VITALS: BMI 15.8
[2023-01-23 09:12] VITALS: BP 153/84; PULSE 72; RESP 18; TEMP 36.6; O2SAT 100
[2023-01-23] MEDS: LACTATED RINGERS 1,000 ML 150 ML IV CONT (09:24)
--- NOTE | 2023-01-23 09:40 | WPDANESEPPF ---
Anes - Initial Pre Proc Eval Procedure: Operation Date: 01/23/23 10:30 Proposed Procedures p Colonoscopy - Ananth Nguyen MD Date/Time: 01/23/23 09:40 Surgeon: Ananth Nguyen MD Pre Op Diagnosis: Abnormal findings on diagnostic imaging, Patient Data Age: 72 Gender: M Height: 1.93 m Weight: 56.6 kg Last Vital Signs Temp 97.9 F 01/23/23 09:12 Pulse 72 01/23/23 09:12 Resp 18 01/23/23 09:12 BP 153/84 H 01/23/23 09:12 Pulse Ox 100 01/23/23 09:12 O2 Del Method Room Air 01/23/23 09:12 Allergies Allergy/AdvReac Type Severity Reaction Status Date / Time No Known Allergies Allergy Verified 01/23/23 09:11 Home Medications Medication Instructions Recorded Confirmed Type acetaminophen 500 mg tablet 500 mg PO TID 06/28/22 01/18/23 History pantoprazole 40 mg tablet,delayed 40 mg PO Q12HR #60 tabs 07/07/22 01/18/23 Rx release polyethylene glycol 3350 17 gram 17 g PO QAM #30 ea 07/19/22 01/18/23 Rx oral powder packet (Miralax) gabapentin 100 mg capsule 100 mg PO TID #90 caps 10/02/22 01/18/23 Rx lisinopril 5 mg tablet 5 mg PO QAM #30 tabs 12/26/22 01/18/23 Rx trazodone 50 mg tablet 50 mg PO QHS PRN insomnia #30 tabs 12/26/22 01/18/23 Rx atorvastatin 20 mg tablet 20 mg PO QHS #90 tabs 12/28/22 01/18/23 Rx hydrocodone 5 mg-acetaminophen 325 1 tablet PO Q6-8H PRN pain #30 tabs 12/28/22 01/18/23 Rx mg tablet aspirin 81 mg tablet 81 mg PO TID 01/18/23 01/18/23 History ibuprofen 200 mg tablet (Advil) 200 mg PO Q6H PRN Pain 01/18/23 01/18/23 History Patient hx anesthesia problems: none Family hx anesthesia problems: none Results Review: All pre-operative results and documents have been reviewed as part of the pre-operative evaluation. [facility] Past Medical History Medical History (Updated 01/15/23 @ 09:37 by Ananth Nguyen MD) Abnormal CT of the abdomen Adenomatous colon polyp Augustine esophagus Elevated blood pressure reading Gastric ulcer Tobacco dependence Surgical History Surgical History H/O esophagogastroduodenoscopy History of open reduction and internal fixation (ORIF) procedure Repair of compound like fracture. Family History Family History Father Acute myocardial infarction Hypertension Mother Diabetes mellitus Acute myocardial infarction Congestive heart failure Hypertension Daughter Cerebrovascular accident Pseudocholinesterase deficiency Grandparent Diabetes mellitus Congestive heart failure Hypertension Cerebrovascular accident Social History Social History Social History: Surrogate medical decision maker: Debbie Lund, daughter. Code status: Full code. Smoking packs per day: 1.5 Smoking cigarettes per day: 30.0 Years smoked: 60 Smoking pack-years: 90.00 Smoking status: Current every day smoker Tobacco type: cigarettes Alcohol intake: former Substance use: current Substance use type: marijuana Other substance usage details: hydrocodone/acetaminophen 1 daily prn hs; daily marijuana Last use: 01/17/23 Lack of Transportation: No Lack of Food: Never True Current Housing: I Have Housing Concerned About Future Housing: No Difficulty Paying Gas/Electric Bills: No Difficulty Paying for Meds: No Currently Unemployed: No Education: High School Diploma/GED Difficulty w/ Childcare or Family Care: No Living arrangements: alone Spiritual care concerns: No Anes - Eval Final PreProcedure Day of Procedure 01/23/23 09:40 Patient weight: normal Heart: regular rate and rhythm Lungs: clear to auscultation Airway: Mallampati scale class II Neurological: alert and oriented Last oral intake: >/= 8 hours ASA classification: III Emergent: no Anesthetic plan: proceed Anesthesia type and mon
--- NOTE | 2023-01-23 09:49 | WPDHPUPDATE1 ---
History and Physical Update Update Date/Time: 01/23/23 09:49 History and Physical has been reviewed, including an updated exam of the patient. There are NO changes in the patient's condition. Risks, benefits, and alternatives have been discussed and questions answered. Patient agrees to proceed with procedure.
--- NOTE | 2023-01-23 10:12 | SUR.OPER ---
CARDIAC REHABILITATION SPECIALIST used oral suction for excess secretions during procedure.
[2023-01-23 10:37] VITALS: BP 143/77; PULSE 62; RESP 22; O2SAT 96
[2023-01-23 10:47] VITALS: BP 129/73; PULSE 64; RESP 20; O2SAT 99
[2023-01-23 10:57] VITALS: BP 146/75; PULSE 62; RESP 18; O2SAT 99
== END 2023-01-23 11:10 | disposition home or self-care (01) ==
PROVIDERS: PCP Family Medicine; Visit Provider Internal Medicine Gastroenterology
PROC: 0DJD8ZZ Inspection of Lower Intestinal Tract, Via Natural or Artificial Opening Endoscopic (ICD-10-PCS; CPT 45378; principal; 2023-01-23 10:30)
DX: D12.2 Benign neoplasm of ascending colon (principal); D12.4 Benign neoplasm of descending colon; D12.5 Benign neoplasm of sigmoid colon; K63.5 Polyp of colon; K57.30 Diverticulosis of large intestine without perforation or abscess without bleeding; K64.8 Other hemorrhoids; K64.4 Residual hemorrhoidal skin tags; F17.210 Nicotine dependence, cigarettes, uncomplicated; F12.90 Cannabis use, unspecified, uncomplicated; Z79.891 Long term (current) use of opiate analgesic; Z79.82 Long term (current) use of aspirin
CPT/HCPCS: 45381; 45385; 88305; J2704; J7120

== ENCOUNTER 2023-02-20 05:41 | Outpatient (CLI) | payer MEDICARE, SELFPAY ==
[2023-02-14 13:19] VITALS: BMI 17.3
--- NOTE | 2023-02-14 13:19 | PC.NURSE ---
Pre Radiology instructions Report to the outpatient gemma penaloza on date _02/20/23____ at time __0900 for procedure Time: _1100___ YOU MAY BE MONITORED AT HOSPITAL FOR UP TO 4 HOURS AFTER YOUR PROCEDURE. A visitor will be allowed to accompany the patient into the hospital. You and your visitor will be asked to self-screen and do not enter if you have any COVID symptoms. A mask is OPTIONAL within the hospital. Patients are to have no food or drink 6 hours prior to procedure time (0500 AM) Driving will be restricted after the procedure, you must have a person to drive you home. Labs will be drawn in preop area and once reviewed, you will be taken to radiology area for procedure. When the procedure is completed, you will be taken to outpatient where you will be monitored for several hours. You may have one visitor in this area. Other than holding anti-coagulants, patient may take other medication(s) as scheduled. Prior to your appointment date patients are instructed to hold anti-coagulants after discussing with ordering provider to stop. If unable to discontinue anti-coagulants please notify radiologist. ? No aspirin or warfarin (Coumadin) for 7 days prior to the procedure. ? No clopidogrel (Plavix), ticagrelor (Brilinta), prasugrel (Effient) or dabigatran (Pradaxa) for 5 days prior to the procedure. ? No rivaroxaban (Xarelto), apixaban (Eliquis), dipyridamole (Aggrenox or Persantine) or cilostazol (Pletal) for 2 days prior to the procedure. Medications to discontinue per physician: _ASA / IBUPROFEN Date to take last dose: __AS OF TODAY 02/14/23 Please leave all valuables, including medications, at home the day of procedure. The hospital will not accept responsibility for valuables. Wear comfortable, loose fitting clothing.? Follow any additional instructions given to you from ordering provider. Telephone instructions given to _PT & PATIENTS DAUGHTER ZACH) and asked if any additional questions and then verbalized understanding. Patient advised to call scheduling provider office or registration scheduling [phone] if any additional questions.
[2023-02-20] VITALS (8 sets, daily range): BP systolic 127–171; BP diastolic 76–92; PULSE 60–93; RESP 16–18; TEMP 36.3–36.4; O2SAT 99–100
--- NOTE | ~2023-02-20 | CT_ITS ---
EXAMINATION: CT biopsy lymph node DATE: 02/20/2023 12:06 INDICATION: Enlarged perirectal lymph node TECHNIQUE: The procedure including the risks and benefits was discussed with the patient. Risks discu ssed included bleeding and infection. The patient understood the risks and agreed to proceed. The sk in overlying the medial right buttock was prepped and draped in usual sterile fashion. Anesthetic wa s administered with 1% lidocaine subcutaneously. A 16 gauge outer needle was advanced under CT ruthie nce to the lesion of interest. An attempt was made to advance an 18 gauge core biopsy needle into the lesion which was unsuccessful due to the difficulty in penetrating the peripheral margin of the nodu le. A 20-gauge core biopsy needle was then utilized to obtain 3 core biopsy specimens with position o f the needle confirmed with CT prior to obtaining the samples. The outer needle was removed and the e ntry site was cleaned and dressed. There were no immediate complications. The dose-length product wa s 179.88 mGy-cm. FINDINGS: CT images demonstrate the outer needle tip along side a 1.8 x 1.5 cm right perirectal nodul e. Subsequent images demonstrate the biopsy needle advanced into the nodule. Patient experienced atyp ical pain with advancement of the biopsy needle into the nodule which raises the possibility of a josefina wannoma or peripheral nerve sheath tumor. IMPRESSION: 1. Successful CT-guided biopsy of a 1.8 x 1.5 cm right perirectal nodule with atypical pain at the ti me of biopsy which suggests possibility of schwannoma or peripheral nerve sheath tumor. Reviewed, dictated and finalized at location A. IMPRESSION: 1. Successful CT-guided biopsy of a 1.8 x 1.5 cm right perirectal nodule with a typical pain at the time of biopsy which suggests possibility of schwannoma or peripheral nerve sheath tumor.
[2023-02-20 09:25] LABS: Mean Platelet Volume 9.7 fl (7.4-10.4); Platelet Count Result 234 k/mm3 (150-375)
[2023-02-20 09:37] LABS: INR 0.9
[2023-02-20] MEDS: oxyCODONE HCL (*CRX) 5 MG TAB IR PO (12:49)
== END 2023-02-20 14:10 | disposition home or self-care (01) ==
PROVIDERS: PCP Family Medicine; Referring Provider Internal Medicine Gastroenterology; Visit Provider Radiology Diagnostic Radiology
PROC: (CPT 77012; principal; 2023-02-20 11:00)
DX: R59.9 Enlarged lymph nodes, unspecified (principal)
CPT/HCPCS: 36415; 38505; 77012; 85049; 85610; 88305; 88342; A9270

== ENCOUNTER 2023-03-13 10:57 | Outpatient (CLI) | payer MEDICARE, MEDICAID, SELFPAY ==
[2023-03-13 11:15] LABS: Kit Draw Collected
== END 2023-03-13 10:58 | disposition home or self-care (01) ==
LOC: ANHLAB 11:01
PROVIDERS: PCP Family Medicine; Visit Provider Internal Medicine Hematology & Oncology
DX: C77.9 Secondary and unspecified malignant neoplasm of lymph node, unspecified (principal)
CPT/HCPCS: 36415

== ENCOUNTER 2023-03-13 11:54 | Outpatient (CLI) | payer MEDICARE, MEDICAID, SELFPAY ==
--- NOTE | ~2023-03-13 | PE_ITS ---
EXAMINATION: PET skull to mid thigh DATE: 03/13/2023 14:30 INDICATION: Malignant neoplasm of the lymph node, recent perirectal lymph node biopsy demonstrated me tastatic poorly differentiated carcinoma of unknown primary site TECHNIQUE: Blood glucose level was 119 mg/dL. 10.520 mCi of 18-fluorodeoxyglucose (18-FDG) was admini stered i.v. Low dose computed tomography (CT) images were acquired from the base of the brain to the proximal thighs for attenuation correction and anatomic localization. Positron emission tomography (P ET) images were acquired in the same distribution beginning 60 minutes after injection. The dose-ezequiel th product (DLP) was 575.78 mGy-cm. COMPARISON: CT, 01/02/2023 FINDINGS: Head/neck: There is FDG uptake in the extraocular muscles without suspicious CT correlate, likely phy siologic. There is a small focus of FDG uptake in the right tonsil with an SUV max of 5.5 which may b e physiologic. There are no pathologically enlarged cervical lymph nodes. Chest: No abnormal FDG uptake is identified. The lungs are free of acute opacities. No pleural effusi on or pneumothorax. No pathologically enlarged thoracic lymph nodes are identified. The heart size is normal. Abdomen/pelvis/proximal thighs: Physiologic FDG activity is present in the bowel and urinary tract. T here is FDG uptake in the previously described 1.7 cm right perirectal lymph node which is undergone biopsy. SUV max of 6.1. No additional lymphadenopathy is identified. There is mild FDG uptake in the ascending colon which may be physiologic. The liver, spleen, gallbladder, and adrenal glands are norm al. Punctate calcifications of the pancreas may reflect chronic pancreatitis. The kidneys are unremar kable. No free intraperitoneal gas or evidence of bowel obstruction. Colonic diverticulosis is presen t without evidence of diverticulitis. Musculoskeletal: No abnormal FDG uptake is identified. There is mild spondylosis of the spine. IMPRESSION: 1. FDG uptake in the previously described enlarged right perirectal lymph node, consistent with biops y-proven metastatic, poorly differentiated carcinoma. 2. Mild FDG uptake in the ascending colon which could be physiologic. Recommend correlation with colo noscopy history. If not recently performed, consider colonoscopy. Reviewed, dictated and finalized at location F. IMPRESSION: 1. FDG uptake in the previously described enlarged right perirectal lymph node, consistent with biopsy-proven metastatic, poorly differentiated carcinoma. 2. Mild FDG uptake in the ascending colon which could be physiologic. Recommend correlation with colonoscopy history. If not recently performed, consider colo noscopy.
[2023-03-13 13:58] LABS: Glucose Point of Care 119 mg/dl (65-105)
== END 2023-03-13 11:55 | disposition home or self-care (01) ==
PROVIDERS: PCP Family Medicine; Visit Provider Internal Medicine Hematology & Oncology
DX: C77.9 Secondary and unspecified malignant neoplasm of lymph node, unspecified (principal); R93.3 Abnormal findings on diagnostic imaging of other parts of digestive tract
CPT/HCPCS: 36415; 78815; A9552

== ENCOUNTER 2023-05-02 18:24 | Emergency (ER) | payer MEDICARE, MEDICAID, SELFPAY ==
--- NOTE | ~2023-05-02 | CT_ITS ---
EXAMINATION: CT abdomen pelvis w con DATE: 05/02/2023 22:31 INDICATION: Abdominal pain, recent diagnosis of rectal cancer TECHNIQUE: Computed tomography (CT) of the abdomen and pelvis was performed with 100 mL Omnipaque-350 intravenous contrast. Automated exposure control and iterative reconstruction technique were employe d. The dose-length product was 202.35 mGy-cm. COMPARISON: 01/02/2023. FINDINGS: Lower thorax: Multiple sub-6 mm pulmonary nodules. Emphysematous change. Coronary artery calcificatio n. Insert before no small moderate distal esophageal and gastric wall edema Liver: Normal. Biliary/Gallbladder: The gallbladder is mildly distended. No stones or sludge. No bile duct dilation. Pancreas: No mass or duct dilation. Spleen: Normal. Adrenals:Mild bilateral thickening, likely hyperplasia. Kidneys: No suspicious mass, obstructing stone, or hydronephrosis. GI tract: No small bowel dilation. Mild dilation of the air-filled transverse colon. The rectum is di lated to 7.2 cm by formed stool, without wall thickening or significant surrounding inflammatory del rosario ge. Large volume of colonic feces. Normal appendix. Mesentery/Peritoneum: No ascites, mass, or free air. Retroperitoneum: No mass. Atherosclerotic abdominal aortic and/or arterial calcifications. Pelvis: 1.7 cm soft tissue nodule in the deep right pelvis, with central low density, may represent p ostbiopsy change or necrosis. Prostatomegaly. Mild bladder wall thickening. Soft Tissues: Soft tissues and body wall unremarkable. Bones: No acute osseous finding. IMPRESSION: Multiple sub-6 mm pulmonary nodules, possibly related to infectious/inflammatory disease, metastases not excluded. Mild gallbladder hydrops, no inflammatory changes or obstructing mass/stone. Correlate with right upp er quadrant pain and biliary labs. Fecal impaction. No CT evidence of stercoral colitis. 1.7 cm likely metastatic lymph node in the deep right pelvis. Cystitis versus chronic urinary bladder wall thickening from outlet obstruction. Reviewed, dictated and finalized at location K. INSTALLATION SUPERVISOR IMPRESSION: Multiple sub-6 mm pulmonary nodules, possibly related to infectious/inflammator y disease, metastases not excluded. Mild gallbladder hydrops, no inflammatory changes or obstructing mass/stone. Co rrelate with right upper quadrant pain and biliary labs. Fecal impaction. No CT evidence of stercoral colitis. 1.7 cm likely metastatic lymph node in the deep right pelvis. Cystitis versus chronic urinary bladder wall thickening from outlet obstruction .
[2023-05-02 19:08] VITALS: BP 92/76; PULSE 88; RESP 18; TEMP 36.7; O2SAT 99
[2023-05-02 20:31] VITALS: BP 106/80; PULSE 65; RESP 13; TEMP 36.6; O2SAT 100
--- NOTE | 2023-05-02 20:51 | PC.NURSE ---
Patient refuses Zofran 4mg IVP and states I'm not nauseous .
--- NOTE | 2023-05-02 20:53 | PC.NURSE ---
Patient stated he could not urinate for a sample and he often just goes . Patient refused urinary straight for urine sample.
[2023-05-02] MEDS: SODIUM CHLORIDE 0.9% IV 1,000 ML 999 ML IV CONT (21:07)
[2023-05-02 21:18] LABS: Basophils Percent Auto 0.3 % (0.2-1.2); Eosinophils Percent Auto 0.3 % (0-4.4); Hematocrit 45.2 % (42.0-52.0); Hemoglobin 14.8 g/dL (14.0-18.0); Immature Granulocyte Absolute 0.01 K/mm3 (0.00-0.031); Immature Granulocyte Percent A 0.1 % (0-0.5); Lymphocytes Absolute Auto 2.22 K/mm3 (0.9-3.2); Lymphocytes Percent Auto 24.4 % (18.3-44.2); Mean Corpuscular HGB Conc 32.7 g/dl (32-36); Mean Corpuscular Hemoglobin 31.9 pg (26-34); Mean Corpuscular Volume 97.4 fl (80-100); Mean Platelet Volume 11.3 fl (7.4-10.4); Monocytes Absolute Auto 0.5 K/mm3 (0.1-0.6); Monocytes Percent Auto 5.4 % (2.6-8.5); Neutrophils Absolute Auto 6.3 K/mm3 (1.3-6.7); Neutrophils Percent Auto 69.5 % (45.5-73.1); Platelet Count Result 169 k/mm3 (150-375); Red Blood Count 4.64 M/mm3 (4.6-6.20); Red Cell Distribution Width 13.4 % (11.5-14.5); White Blood Count 9.1 K/mm3 (4.5-10.0)
[2023-05-02 21:28] LABS: INR 0.9
[2023-05-02 21:29] LABS: Lactic Acid Reflex 1.4 mmol/L (0.7-2.0); Partial Thromboplastin Time 28.1 SECONDS (22.3-36.8)
[2023-05-02 22:01] LABS: Alanine Aminotransferase 14 U/L (6-50); Albumin Level 3.4 g/dL (3.5-5.1); Alkaline Phosphatase 32 U/L (38-126); Anion Gap 5 mmol/L (8-16); Aspartate Amino Transferase 23 U/L (17-59); Bilirubin,Total 0.8 mg/dL (0.2-1.3); Blood Urea Nitrogen 13 mg/dL (9-20); Calcium 8.3 mg/dL (8.4-10.2); Carbon Dioxide 24 mmol/L (22-30); Chloride 102 mmol/L (98-107); Estimated Glomerular Filt Rate > 60; Glucose 108 mg/dL (65-110); Lipase 84 U/L (23-300); Magnesium 2.4 mg/dL (1.6-2.3); Sodium 131 mmol/L (137-145)
[2023-05-02 22:06] VITALS: BP 145/64; PULSE 55; RESP 17; O2SAT 100
--- NOTE | 2023-05-02 22:40 | PC.NURSE ---
Patient requested a nicotine patch. Notified Dr. Falcon
[2023-05-02] MEDS: NICOTINE (*PBKC) 21 MG PATCH 1 PATCH TRANSDERM (22:46)
[2023-05-02 22:47] LABS: Appearance Urine Cloudy (Clear); Bacteria Urine None Seen /hpf; Bilirubin Urine Negative (Negative); Blood Urine Negative (Negative); Color Urine Yellow (Yellow); Glucose Urine UA Negative (Negative); Ketones Urine Negative (Negative); Leukocyte Esterase Ur Negative LEU/UL (Negative); Need Manual Microscopic Reviewed; Nitrate Urine Negative (Negative); Protein Urine Negative (Negative); Specific Grav Ur 1.015 (1.001-1.035); Squamous Epithelial Cell Urine None seen /hpf (Few); WBC Urine 0-5 /hpf
[2023-05-02 22:59] LABS: Add Urine Microscopic? YES
--- NOTE | 2023-05-03 00:40 | ED.GENADULT ---
HPI - General Adult General Chief complaint: GI Bleed Stated complaint: constipation Time Seen by Provider: 05/02/23 20:18 History of Present Illness HPI narrative: Patient is a 73-year-old gentleman who presents emergency department with chief complaint of decreased appetite and constipation. The patient states he has history of rectal cancer that is currently being worked up as an outpatient. Related Data Home Medications Medication Instructions Recorded Confirmed acetaminophen 500 mg tablet 500 mg PO TID 06/28/22 04/03/23 ibuprofen 200 mg tablet (Advil) 200 mg PO Q6H PRN Pain 01/18/23 04/03/23 Allergies Allergy/AdvReac Type Severity Reaction Status Date / Time No Known Allergies Allergy Verified 04/03/23 09:59 Review of Systems Review of Systems: A 10 system review of systems was completed on the patient and is negative except for what is stated in the HPI. Nursing and ancillary documentation was reviewed. [facility] Past Medical History Medical History Abnormal CT of the abdomen Adenomatous colon polyp Augustine esophagus Cancer of lymph nodes, secondary Elevated blood pressure reading Gastric ulcer Tobacco dependence Surgical History Surgical History H/O esophagogastroduodenoscopy History of open reduction and internal fixation (ORIF) procedure Repair of compound like fracture. Family History Family History Father Acute myocardial infarction Hypertension Carcinoma of colon Mother Diabetes mellitus Acute myocardial infarction Congestive heart failure Hypertension Daughter Cerebrovascular accident Pseudocholinesterase deficiency Grandparent Diabetes mellitus Congestive heart failure Hypertension Cerebrovascular accident Social History Social History Social History: Surrogate medical decision maker: Debbie Lund, daughter. Code status: Full code. Smoking packs per day: 1.5 Smoking cigarettes per day: 30.0 Years smoked: 50 Smoking pack-years: 75.00 Smoking status: Current every day smoker Tobacco type: cigarettes Alcohol intake: former Substance use: current Substance use type: marijuana Other substance usage details: hydrocodone/acetaminophen 1 daily prn hs; daily marijuana Last use: 01/29/23 Lack of Transportation: No Lack of Food: Never True Current Housing: I Have Housing Concerned About Future Housing: No Difficulty Paying Gas/Electric Bills: No Difficulty Paying for Meds: No Currently Unemployed: No Education: High School Diploma/GED Difficulty w/ Childcare or Family Care: No Living arrangements: alone Spiritual care concerns: No Exam Narrative: GENERAL: Well-appearing, thin, and in no acute distress. HEAD: Normocephalic, atraumatic. EYES: PERRLA and EOMI. ENT: Nares clear, no rhinorrhea or epistaxis. Mucous membranes moist. NECK: Supple. CHEST: Clear to auscultation. No respiratory distress. HEART: Regular rate and rhythm. No murmur heard. Normal peripheral pulses. ABDOMEN: Soft, mild tenderness, nondistended, normal active bowel sounds. EXTREMITIES: Normal range of motion. No edema. SKIN: Warm, dry, no rash. NEURO: No focal deficits. Alert and oriented x3. PSYCH: Normal mood and affect. Course Vital Signs Vital signs: Vital Signs Temperature 36.7 C 05/02/23 19:08 Pulse Rate 88 05/02/23 19:08 Respiratory Rate 18 05/02/23 19:08 Blood Pressure 92/76 L 05/02/23 19:08 Pulse Oximetry 99 05/02/23 19:08 Oxygen Delivery Room Air 05/02/23 19:08 Temperature 36.6 C 05/02/23 20:31 Pulse Rate 55 L 05/02/23 22:06 Respiratory Rate 17 05/02/23 22:06 Blood Pressure 145/64 H 05/02/23 22:06 Pulse Oximetry 100 05/02/23 22:06 Oxygen
== END 2023-05-03 01:06 | disposition home or self-care (01) ==
PROVIDERS: Emergency Provider Emergency Medicine; PCP Family Medicine
DX: K56.41 Fecal impaction (principal); Z85.048 Personal history of other malignant neoplasm of rectum, rectosigmoid junction, and anus; F17.210 Nicotine dependence, cigarettes, uncomplicated
CPT/HCPCS: 36415; 74177; 80053; 81001; 83605; 83690; 83735; 85025; 85610; 85730; 96360; 99284; A9270; J7030; Q9967

== ENCOUNTER 2023-05-18 09:52 | Outpatient (NON) | payer MEDICARE, MEDICAID, SELFPAY ==
[2023-05-21 18:22] LABS: Amphetamines NEGATIVE ng/mL (<500); Barbiturates NEGATIVE ng/mL (<300); Benzodiazepines NEGATIVE ng/mL (<100); Cocaine Metabolite NEGATIVE ng/mL (<150); Marijuana Metabolite POSITIVE ng/mL (<20); Methadone Metabolite NEGATIVE ng/mL (<100); Opiates POSITIVE ng/mL (<100); Oxidant NEGATIVE mcg/mL (<200); pH 7.3 (4.5-9.0)
== END 2023-05-18 09:53 | disposition home or self-care (01) ==
LOC: ANHGOSHLAB 09:56
PROVIDERS: PCP Family Medicine; Visit Provider Family Medicine
DX: E78.5 Hyperlipidemia, unspecified (principal); G89.29 Other chronic pain; I10 Essential (primary) hypertension; Z79.891 Long term (current) use of opiate analgesic; Z79.899 Other long term (current) drug therapy
CPT/HCPCS: 80307